=== PATIENT | female | born 1950 | race Caucasian/White ===

== ENCOUNTER 2020-03-20 07:14 | Outpatient (REF) | payer MEDICARE, SELFPAY ==
[2020-03-20 13:57] LABS: Glucose Urine UA NEG (NEG); Leukocyte Esterase Urine NEG (NEG); Nitrite Urine NEG (NEG); PH 5.5 (5.0-8.0); Specific Gravity - Urine >= 1.030 (1.005-1.025); Urine Blood NEG (NEG); Urine Ketones NEG (NEG); Urine Protein NEG (NEG-TRACE)
[2020-03-20 14:02] LABS: Appearance Urine CLOUDY; Color Urine YELLOW
[2020-03-20 14:08] LABS: Alanine Aminotransferase 30 U/L (0-31); Albumin Level 4.2 g/dL (3.5-5.0); Alkaline Phosphatase 99 U/L (39-117); Anion Gap 11 (12-20); Aspartate Amino Transferase 22 U/L (5-31); Bilirubin Total 0.4 mg/dL (0.0-1.0); Blood Urea Nitrogen 15 mg/dL (9-16); Calcium 8.5 mg/dL (8.4-10.2); Carbon Dioxide 29 mmol/L (22-29); Chloride 104 mmol/L (96-108); Cholesterol 152 mg/dL; Estimated Glomerular Filt Rate > 60; Glucose Fasting 104 mg/dL (60-99); HDL Cholesterol 30 mg/dL; LDL Cholesterol Calculated 104 mg/dl; Potassium 4.1 mmol/l (3.3-5.1); Sodium 140 mmol/L (135-145); Total Protein 6.7 g/dL (6.5-8.0); Triglycerides 90 mg/dL
[2020-03-20 14:34] LABS: Free T4 (Free Thyroxine) 1.23 ng/dL (0.71-1.85); Thyroid Stimulating Hormone 0.05 uIU/mL (0.32-4.0); Vitamin D 25-OH Total 31.7 ng/mL (>30)
== END 2020-03-20 07:15 | disposition home or self-care (01) ==
LOC: HO.HMGCLDS 07:14
PROVIDERS: PCP Internal Medicine; Visit Provider Internal Medicine
DX: I10 Essential (primary) hypertension (principal); E78.2 Mixed hyperlipidemia; E03.9 Hypothyroidism, unspecified
CPT/HCPCS: 80053; 80061; 81003; 82306; 84439; 84443

== ENCOUNTER 2020-04-17 08:44 | Outpatient (REF) | payer MEDICARE, SELFPAY ==
--- NOTE | 2020-04-17 08:50 | XR_ITS ---
EXAMINATION: XR HIP, RIGHT CLINICAL INFORMATION: Pain right hip. COMPARISON: None TECHNIQUE: Two views of the right hip. FINDINGS: Bones and soft tissues are normal. No fracture. Alignment is anatomic. Hip joint space is maintained. XR/XR hip RT min 2V IMPRESSION: Unremarkable right hip exam.
== END 2020-04-17 08:45 | disposition home or self-care (01) ==
LOC: HO.HMGCX 08:44
PROVIDERS: PCP Internal Medicine; Visit Provider Internal Medicine
DX: M25.551 Pain in right hip (principal)
CPT/HCPCS: 73502

== ENCOUNTER 2020-10-05 08:40 | Outpatient (REF) | payer MEDICARE, SELFPAY ==
--- NOTE | ~2020-10-05 | XR_ITS ---
EXAMINATION: XR CHEST CLINICAL INFORMATION: Cough. COMPARISON: None TECHNIQUE: 2 views of the chest were obtained. FINDINGS: No significant abnormality is noted involving the heart, lungs, mediastinum, bony thorax or soft tissues. XR/XR chest 2V IMPRESSION: Unremarkable chest examination.
== END 2020-10-05 08:41 | disposition home or self-care (01) ==
LOC: HO.HMGCX 08:40
PROVIDERS: PCP Internal Medicine; Visit Provider Internal Medicine
DX: R05 Cough (principal)
CPT/HCPCS: 71046

== ENCOUNTER 2020-12-22 16:09 | Outpatient (REF) | payer MEDICARE, SELFPAY ==
--- NOTE | ~2020-12-22 | XR_ITS ---
EXAMINATION: XR ANKLE, RIGHT XR ANKLE, LEFT CLINICAL INFORMATION: Pain in the left ankle and joints of left foot. Pain the right ankle and joints of the right foot. COMPARISON: None TECHNIQUE: AP, lateral, and mortise views of each ankle. FINDINGS: RIGHT ANKLE: No fracture. Alignment is anatomic. Ankle mortise is symmetric. Joint spaces are maintained. No ankle joint effusion. There is a small chronic 4 mm ossific fragment at the posteromedial aspect of the medial malleolus which could correspond to an old avulsion injury. No acute soft tissue abnormalities are identified. LEFT ANKLE: No fracture or malalignment. Ankle mortise is symmetric. Joint spaces are well-preserved. No effusion. No acute soft tissue abnormalities. XR/XR ankle RT min 3V IMPRESSION: No acute osseous abnormalities or significant arthritis at the ankles. Old chronic 4 mm ossific fragments near the right medial malleolus, potentially due to an old avulsion injury.
--- NOTE | ~2020-12-22 | XR_ITS ---
EXAMINATION: XR ANKLE, RIGHT XR ANKLE, LEFT CLINICAL INFORMATION: Pain in the left ankle and joints of left foot. Pain the right ankle and joints of the right foot. COMPARISON: None TECHNIQUE: AP, lateral, and mortise views of each ankle. FINDINGS: RIGHT ANKLE: No fracture. Alignment is anatomic. Ankle mortise is symmetric. Joint spaces are maintained. No ankle joint effusion. There is a small chronic 4 mm ossific fragment at the posteromedial aspect of the medial malleolus which could correspond to an old avulsion injury. No acute soft tissue abnormalities are identified. LEFT ANKLE: No fracture or malalignment. Ankle mortise is symmetric. Joint spaces are well-preserved. No effusion. No acute soft tissue abnormalities. XR/XR ankle LT min 3V IMPRESSION: No acute osseous abnormalities or significant arthritis at the ankles. Old chronic 4 mm ossific fragments near the right medial malleolus, potentially due to an old avulsion injury.
== END 2020-12-22 16:10 | disposition home or self-care (01) ==
LOC: HO.HMGCX 16:09
PROVIDERS: PCP Internal Medicine; Visit Provider Internal Medicine
DX: M25.571 Pain in right ankle and joints of right foot (principal); M25.572 Pain in left ankle and joints of left foot
CPT/HCPCS: 73610

== ENCOUNTER 2021-02-10 15:00 | Outpatient (RCR) | payer MEDICARE, SELFPAY ==
--- NOTE | 2021-01-13 16:03 | MHC.PT.EP ---
[facility] [place] Office [place] Office [place] Office [address] Leia Sanders [address] [phone] F: [phone] F: [phone] F: [phone] F: [phone] Physical Therapy Plan of Care Date of Evaluation: Date of Surgery: Diagnosis: pain in R ankle and joints of foot Assessment: 70 y/o F referred to PT with OA of R foot. She reports B ankle and forefoot pain for several year resulting in pain with walking (especially after prolonged rest), stairs, and exercise program. Examination shows decreased ankle AROM, decreased gastroc/soleus length, decreased strength of hip ER and ankle, and increased pain. Recommend PT 2x/week for 4 weeks to address impairments, implement HEP, and optimize functional mobility. Frequency and Duration: The patient will be seen 2x/week for 4 weeks Short Term Goals: 2 weeks 1. I with HEP 2. Improve ankle dorsiflexion to 5 degrees Medical Art Therapist Goals: 4 weeks: 1. I with HEP and self management of sx 2. Pt will be able to perform exercise classes with pain < 3/10 3. Improve Gastroc length by 5 degrees Treatment Plan: Modalities to reduce pain, spasms and effusion. Manual therapy to restore motion and function. Therapeutic exercise to improve strength and flexibility. Neuromuscular re-education for posture and balance. Therapeutic activities to return to functional activities of daily living. Electronically signed by: Ailyn Pineda PT Please sign and return to therapist. Thank you for your referral.
--- NOTE | 2021-02-16 11:32 | MHC.PT.DC ---
[facility] [place] Office [place] Office [place] Office [address] Mayra Sanders 140 [facility] [phone] F: [phone] F: [phone] F: [phone] F: [phone] Physical Therapy Discharge Report Diagnosis: pain in R ankle and joints of foot Date of Surgery: Date of Evaluation: 01/13/21 Date of Discharge: 02/16/21 Treatments to Date: 6 Cancellations to Date: 0 No Shows to Date: 0 Discharge Status: Patient Elected to Stop Discharge Summary: Pt called to self discharge stating she was sore after last session. States she will continue with I HEP at home, but would like to d/c from PT. Electronically signed by: Ailyn Pineda PT Please sign and return to therapist. Thank you for your referral.
== END 2021-02-16 11:32 | disposition home or self-care (01) ==
LOC: HO.PT 15:00
PROVIDERS: PCP Internal Medicine; Visit Provider Internal Medicine
DX: M25.571 Pain in right ankle and joints of right foot (principal)
CPT/HCPCS: 97110; 97112; 97140; 97150; 97161

== ENCOUNTER 2021-03-31 12:27 | Outpatient (REF) | payer MEDICARE, SELFPAY ==
[2021-03-31 14:03] LABS: Hematocrit 41.3 % (37.0-47.0); Hemoglobin 14.2 g/dl (12.0-16.0); Mean Corpuscular HGB Conc 34.4 g/dl (31.0-35.0); Mean Corpuscular Hemoglobin 31.8 pg (27.0-33.0); Mean Corpuscular Volume 92.4 fL (80.0-98.0); Mean Platelet Volume 10.2 fL (9.4-12.3); Platelet Count 276 X10*3/uL (160-400); Red Blood Count 4.47 X10*6/uL (4.20-5.50); Red Cell Distribution Width 11.7 % (11.0-16.0); White Blood Count 7.8 X10*3/uL (4.8-10.8)
[2021-03-31 14:44] LABS: Anion Gap 14 (12-20); Blood Urea Nitrogen 14 mg/dL (9-16); Calcium 10.1 mg/dL (8.4-10.2); Carbon Dioxide 26 mmol/L (22-29); Chloride 103 mmol/L (96-108); Estimated Glomerular Filt Rate > 60; Glucose Random 89 mg/dL (60-115); Sodium 139 mmol/L (135-145)
== END 2021-03-31 12:28 | disposition home or self-care (01) ==
LOC: HO.HMGCLDS 12:27
PROVIDERS: PCP Internal Medicine; Visit Provider Internal Medicine
DX: I10 Essential (primary) hypertension (principal)
CPT/HCPCS: 36415; 80048; 85027

== ENCOUNTER 2021-07-30 07:51 | Outpatient (REF) | payer MEDICARE, SELFPAY ==
[2021-07-30 11:31] LABS: Appearance Urine CLEAR; Color Urine YELLOW; Glucose Urine UA NEG (NEG); Leukocyte Esterase Urine NEG (NEG); Nitrite Urine NEG (NEG); Specific Gravity - Urine 1.015 (1.005-1.025); Urine Blood NEG (NEG); Urine Ketones NEG (NEG); Urine Protein NEG (NEG-TRACE)
[2021-07-30 11:51] LABS: Alanine Aminotransferase 31 U/L (0-31); Albumin Level 4.3 g/dL (3.5-5.0); Alkaline Phosphatase 80 U/L (39-117); Anion Gap 13 (12-20); Aspartate Amino Transferase 25 U/L (5-31); Bilirubin Total 0.6 mg/dL (0.0-1.0); Blood Urea Nitrogen 11 mg/dL (9-16); Calcium 9.8 mg/dL (8.4-10.2); Carbon Dioxide 27 mmol/L (22-29); Chloride 105 mmol/L (96-108); Cholesterol 167 mg/dL; Estimated Glomerular Filt Rate > 60; Glucose Fasting 112 mg/dL (60-99); HDL Cholesterol 37 mg/dL; LDL Cholesterol Calculated 107 mg/dl; Potassium 3.9 mmol/L (3.3-5.1); Sodium 141 mmol/L (135-145); Total Protein 6.8 g/dL (6.5-8.0); Triglycerides 116 mg/dL
[2021-07-30 11:59] LABS: RBC Urine 0 /HPF (0); Squamous Epithelial Cell Urine 1+ /LPF; WBC Urine 0-2 /HPF (0-4)
[2021-07-30 12:00] LABS: Bacteria Urine TRACE /LPF; Mucus Urine 1+ /LPF; Renal Epithelial Cells Urine TRACE /LPF
[2021-07-30 12:15] LABS: TSH reflex Free T4 0.17 uIU/mL (0.32-4.0); Vitamin D 25-OH Total 71.2 ng/mL (>30)
[2021-07-30 12:55] LABS: Free T4 (Free Thyroxine) 1.14 ng/dL (0.71-1.85)
== END 2021-07-30 07:52 | disposition home or self-care (01) ==
LOC: HO.HMGCLDS 07:51
PROVIDERS: Visit Provider Internal Medicine
DX: E03.9 Hypothyroidism, unspecified (principal); E78.5 Hyperlipidemia, unspecified; I10 Essential (primary) hypertension; K21.9 Gastro-esophageal reflux disease without esophagitis
CPT/HCPCS: 36415; 80053; 80061; 81001; 82306; 84439; 84443

== ENCOUNTER 2022-02-17 08:14 | Outpatient (REF) | payer MEDICARE, SELFPAY ==
[2022-02-17 11:18] LABS: Hematocrit 41.8 % (37.0-47.0); Hemoglobin 14.3 g/dl (12.0-16.0); Mean Corpuscular HGB Conc 34.2 g/dl (31.0-35.0); Mean Corpuscular Hemoglobin 31.5 pg (27.0-33.0); Mean Corpuscular Volume 92.1 fL (80.0-98.0); Mean Platelet Volume 10.5 fL (9.4-12.3); Platelet Count 244 X10*3/uL (160-400); Red Blood Count 4.54 X10*6/uL (4.20-5.50); White Blood Count 4.4 X10*3/uL (4.8-10.8)
[2022-02-17 11:22] LABS: Estimated Average Glucose 108 mg/dL; Hemoglobin A1c % 5.4 %
[2022-02-17 11:30] LABS: Alanine Aminotransferase 26 U/L (0-31); Albumin Level 4.3 g/dL (3.5-5.0); Alkaline Phosphatase 81 U/L (39-117); Anion Gap 13 (12-20); Aspartate Amino Transferase 28 U/L (5-31); Bilirubin Total 0.6 mg/dL (0.0-1.0); Blood Urea Nitrogen 15 mg/dL (9-16); Calcium 9.5 mg/dL (8.4-10.2); Carbon Dioxide 28 mmol/L (22-29); Chloride 102 mmol/L (96-108); Cholesterol 145 mg/dL; Estimated Glomerular Filt Rate > 60; Glucose Fasting 96 mg/dL (60-99); HDL Cholesterol 35 mg/dL; LDL Cholesterol Calculated 91 mg/dl; Sodium 139 mmol/L (135-145); Total Protein 6.8 g/dL (6.5-8.0); Triglycerides 99 mg/dL
[2022-02-17 11:55] LABS: TSH reflex Free T4 1.05 uIU/mL (0.32-4.0)
== END 2022-02-17 08:15 | disposition home or self-care (01) ==
LOC: HO.HMGCLDS 08:14
PROVIDERS: PCP Internal Medicine; Visit Provider Internal Medicine
DX: E03.9 Hypothyroidism, unspecified (principal); E78.5 Hyperlipidemia, unspecified; I10 Essential (primary) hypertension
CPT/HCPCS: 36415; 80053; 80061; 83036; 84443; 85027

== ENCOUNTER 2022-08-05 08:05 | Outpatient (REF) | payer MEDICARE, SELFPAY ==
[2022-08-05 11:38] LABS: Estimated Average Glucose 114 mg/dL; Hemoglobin A1c % 5.6 %
[2022-08-05 12:04] LABS: Alanine Aminotransferase 25 U/L (0-31); Albumin Level 4.2 g/dL (3.5-5.0); Alkaline Phosphatase 92 U/L (39-117); Anion Gap 12 (12-20); Aspartate Amino Transferase 24 U/L (5-31); Bilirubin Total 0.7 mg/dL (0.0-1.0); Blood Urea Nitrogen 12 mg/dL (9-16); Calcium 9.3 mg/dL (8.4-10.2); Carbon Dioxide 28 mmol/L (22-29); Chloride 107 mmol/L (96-108); Cholesterol 155 mg/dL; Estimated Glomerular Filt Rate > 60; Glucose Fasting 98 mg/dL (60-99); HDL Cholesterol 35 mg/dL; LDL Cholesterol Calculated 101 mg/dl; Potassium 4.5 mmol/L (3.3-5.1); Sodium 142 mmol/L (135-145); TSH reflex Free T4 0.25 uIU/mL (0.32-4.0); Total Protein 6.5 g/dL (6.5-8.0); Triglycerides 98 mg/dL; Vitamin D 25-OH Total 73.6 ng/mL (>30)
[2022-08-05 13:32] LABS: Free T4 (Free Thyroxine) 1.25 ng/dL (0.71-1.85)
== END 2022-08-05 08:06 | disposition home or self-care (01) ==
LOC: HO.HMGCLDS 08:05
PROVIDERS: PCP Internal Medicine; Visit Provider Internal Medicine
DX: E03.9 Hypothyroidism, unspecified (principal); I10 Essential (primary) hypertension; E78.5 Hyperlipidemia, unspecified; E55.9 Vitamin D deficiency, unspecified
CPT/HCPCS: 36415; 80053; 80061; 82306; 83036; 84439; 84443

== ENCOUNTER 2022-10-21 07:22 | Outpatient (REF) | payer MEDICARE, SELFPAY ==
[2022-10-21 12:18] LABS: Alanine Aminotransferase 23 U/L (0-31); Albumin Level 4.3 g/dL (3.5-5.0); Alkaline Phosphatase 80 U/L (39-117); Anion Gap 10 (12-20); Aspartate Amino Transferase 23 U/L (5-31); Bilirubin Total 0.9 mg/dL (0.0-1.0); Blood Urea Nitrogen 16 mg/dL (9-16); Calcium 9.9 mg/dL (8.4-10.2); Carbon Dioxide 31 mmol/L (22-29); Chloride 103 mmol/L (96-108); Estimated Glomerular Filt Rate > 60; Glucose Random 98 mg/dL (60-115); Potassium 4.1 mmol/L (3.3-5.1); Sodium 140 mmol/L (135-145); Total Protein 6.8 g/dL (6.5-8.0)
[2022-10-21 12:23] LABS: TSH reflex Free T4 0.18 uIU/mL (0.32-4.0)
[2022-10-21 13:07] LABS: Free T4 (Free Thyroxine) 1.17 ng/dL (0.71-1.85)
== END 2022-10-21 07:23 | disposition home or self-care (01) ==
LOC: HO.HMGCLDS 07:22
PROVIDERS: PCP Internal Medicine; Visit Provider Internal Medicine
DX: I10 Essential (primary) hypertension (principal); E03.9 Hypothyroidism, unspecified
CPT/HCPCS: 36415; 80053; 84439; 84443

== ENCOUNTER 2023-01-26 11:22 | Outpatient (AMB) | payer MEDICARE, SELFPAY ==
--- NOTE | 2023-01-26 11:34 | A.OFFPC_ITS ---
Vital Signs 01/26/23 11:36 Height 5 ft 2 in Weight 149 lb 6 oz BMI 27.3 BP 124/78 Blood Pressure Location Lt brachial Position Sitting Pulse 86 Pulse Source Pulse Oximeter Temp 98.3 F Temp Source Oral Pulse Oximetry (%) 98 Oxygen Delivery Method Room Air Intake Visit Reasons: cough x 4 days, COVID neg Intake Note: Patient is here with cough for 4 days, she took Covid test this morning and it came out negative. Allergies amlodipine [Lotrel] Allergy (Unknown, Verified 01/26/23 11:38) doesn't remember atorvastatin [Lipitor] Allergy (Unknown, Verified 01/26/23 11:38) does not remember benazepril [Lotrel] Allergy (Unknown, Verified 01/26/23 11:38) does not remember clindamycin Allergy (Unknown, Verified 01/26/23 11:38) doesnot remember ezetimibe [Zetia] Allergy (Unknown, Verified 01/26/23 11:38) does not remember ibandronate sodium [Boniva] Allergy (Unknown, Verified 01/26/23 11:38) pain in bones niacin [Niaspan Extended-Release] Allergy (Unknown, Verified 01/26/23 11:38) does not remember penicillin V Allergy (Unknown, Verified 01/26/23 11:38) sores in her mouth wheat Allergy (Unknown, Verified 01/26/23 11:38) Unknown metoprolol Adverse Reaction (Intermediate, Verified 01/26/23 11:38) Wavy vision lisinopril Adverse Reaction (Unknown, Verified 01/26/23 11:38) Cough Medication List - Last Reconciled 01/26/23 by Nicole Barroso MD calcium carbonate (Calcium) 600 mg PO DAILY glucosamine HCl 1,500 mg PO DAILY hydrochlorothiazide 12.5 mg PO DAILY irbesartan-hydrochlorothiazide 150-12.5 mg 1 tab PO DAILY levothyroxine 88 mcg PO DAILY montelukast 10 mg PO DAILY omeprazole magnesium (Prilosec OTC) 20 mg PO DAILY simvastatin 20 mg PO DAILY turmeric mg PO zinc sulfate PO Tobacco use date assessed: 01/26/23 Fall risk assessment: No Falls in past year Last assessed Fall Risk: 01/26/23 Dental Screening Dental Screen Date: 01/26/23 Did you have a dental visit in the last 12 months?: Yes Did you have a dental problem in the last 6 months where you did not have access to dental care?: No Was dental information given to patient?: Patient has dentist HPI cough x 4 days, COVID neg HPI Details Pt c/o dry cough, sore throat, worse at night for 4 days. Patient had 2- COVID testing. She denies fever chills pleurisy sinus congestion sputum production wheezing PND orthopnea. Patient reports chronic postnasal drip and has been using Flonase nasal spray with good relief. She has been taking antihistamine Claritin which has been somewhat helpful. [facility] Medical History Annual physical exam Cataract Bilateral ankle pain Ankle pain, right Breast cancer Cough Mammogram normal Normal Pap smear Hypothyroidism Hyperlipidemia Hip pain Dysphagia GERD (gastroesophageal reflux disease) Osteoporosis HTN (hypertension) Surgical History H/O colonoscopy No pertinent past surgical history Family History Father No problems noted. Mother No problems noted. Social History Housing: House Alcohol intake: current Alcohol intake frequency: holidays/special occasions only Patient Tobacco Use Status: Former Tobacco user Quit Date: in her 20s e-Cigarette/Vaping Use: Never Used Current occupational status: retired Cognitive needs: No Hearing needs: No Vision needs: Yes Questionnaire Thrive Questionnaire Date Thrive assessed: 08/12/22 SANTOSH-7 AMB Questionnaire SANTOSH-7 Date SANTOSH - 7 assessed: 08/12/22 Source: Developed by Drs. Trevor Mackay, Esperanza Frey, Brenton Rosales and colleagues, with an educational crys from [employer]. Review of Systems Const All systems reviewed & are unremarkable except as noted in HPI and below Reports no additional complaints Eyes Reports no additional complaints ENT Reports no additional complaints Card Reports no additional complaints Resp Reports no additional complaints GI Reports no additional complaints Reports no additional complaints Physical exam (Primary Care) Vital Signs: Last Vital Signs Temp 98.3 F 01/26/23 11:36 Pulse 86 01/26/23 11:36 BP 124/78 01/26/23 11:36 Pulse Ox 98 01/26/23 11:36 Oxygen Delivery Method Room Air 01/26/23 11:36 BMI result Body Mass Index 27.3 Tobacco/Smoking Status: Tobacco use Status Tobacco use date assessed 01/26/23 01/26/23 11:43 Patient Tobacco Use Status Former Tobacco user 01/26/23 11:43 e-Cigarette/Vaping Use Never Used 01/26/23 11:43 Thrive Assessment: Date of Thrive Assessment Date Thrive assessed 08/12/22 01/26/23 11:43 Const General: no acute distress HENMT Ears: hearing grossly normal bilaterally Face and sinus: Yes normal facial exam and No sinus tenderness Mouth: Normal oral and palatal mucosa present Throat: Yes postnasal drainage Eyes General: appearance normal, both eyes and all related structures Neck Neck: Yes supple Resp Effort & Inspection: normal respiratory effort Auscultation: clear to auscultation bilaterally Cardio Rhythm: regular rhythm Heart sounds: S1 normal heart sound present and S2 normal heart sound present Assessment and Plan Assessment & Plan (1) Cough: Code(s): R05 - Cough Plan: Patient was advised to continue antihistamine Flonase nasal spray and Tessalon Perles will be added. Medications: New benzonatate 100 mg PO TID 30 caps 0RF Coding Level of Care Code Est Pt Level 3 (97770) Diagnoses Cough R05
[2023-01-26 11:36] VITALS: BP 124/78; PULSE 86; TEMP 36.8; O2SAT 98; BMI 27.3
== END 2023-01-26 15:54 | disposition home or self-care (01) ==
PROVIDERS: PCP Internal Medicine; Visit Provider Internal Medicine
DX: R05.9 Cough, unspecified (principal)
CPT/HCPCS: 99213

== ENCOUNTER 2023-01-31 07:45 | Outpatient (REF) | payer MEDICARE, SELFPAY ==
--- NOTE | ~2023-01-31 | US_ITS ---
EXAMINATION: US ABDOMEN COMPLETE CLINICAL INFORMATION: Right upper quadrant pain. COMPARISON: None available. TECHNIQUE: Real-time imaging of the abdominal viscera. Limited visualization due to bowel gas. FINDINGS: PANCREAS: Limited visualization of pancreatic tail and head. Imaged portion of pancreatic body is unremarkable. ABDOMINAL AORTA: Nonaneurysmal. INFERIOR VENA CAVA: Visualized portions are normal. LIVER: Diffuse increase in echogenicity of the liver is characteristic of primary hepatocellular disease, possibly due to hepatic steatosis and further limits visualization. GALLBLADDER: No gallstones. No gallbladder wall thickening. COMMON BILE DUCT: Normal in caliber measuring 0.3 cm in diameter. RIGHT KIDNEY: No hydronephrosis. No renal calculi. Renal cortical thickness is normal. The kidney measures 11.3 cm in maximum dimension. LEFT KIDNEY: No hydronephrosis. No renal calculi. Limited visualization. Left renal 6.6 x 2.9 x 4.8 cm upper pole cyst as well as 1.8 cm lower pole cyst and 1.1 cm upper pole cyst with benign features. No follow up imaging is indicated. The kidney measures 12.1 cm in maximum dimension. SPLEEN: Normal. The spleen measures 8.8 cm in maximum dimension. FREE FLUID: None. US/US abdomen complete IMPRESSION: Diffuse increase in echogenicity of the liver is characteristic of primary hepatocellular disease, possibly due to hepatic steatosis and further limits visualization.
== END 2023-01-31 07:46 | disposition home or self-care (01) ==
LOC: HO.US 07:45
PROVIDERS: PCP Internal Medicine; Visit Provider Internal Medicine
DX: R10.11 Right upper quadrant pain (principal)
CPT/HCPCS: 76700

== ENCOUNTER 2023-04-12 11:12 | Outpatient (REF) | payer MEDICARE, SELFPAY ==
[2023-04-12 14:10] LABS: TSH reflex Free T4 0.66 uIU/mL (0.32-4.0)
[2023-04-13 04:18] LABS: Triiodothyronine T3 Free 3.4 pg/mL (2.3-4.2)
== END 2023-04-12 11:13 | disposition home or self-care (01) ==
LOC: HO.HMGCLDS 11:12
PROVIDERS: PCP Internal Medicine; Visit Provider Internal Medicine
DX: E03.9 Hypothyroidism, unspecified (principal)
CPT/HCPCS: 36415; 84443; 84481

== ENCOUNTER 2023-10-26 06:30 | Outpatient (REF) | payer MEDICARE, SELFPAY ==
[2023-10-26 10:53] LABS: Alanine Aminotransferase 23 U/L (0-31); Albumin Level 4.1 g/dL (3.5-5.0); Alkaline Phosphatase 70 U/L (39-117); Anion Gap 10 (12-20); Aspartate Amino Transferase 23 U/L (5-31); Bilirubin Total 0.7 mg/dL (0.0-1.0); Blood Urea Nitrogen 15 mg/dL (9-16); Calcium 9.5 mg/dL (8.4-10.2); Carbon Dioxide 28 mmol/L (22-29); Chloride 105 mmol/L (96-108); Cholesterol 139 mg/dL (<200); Estimated Glomerular Filt Rate > 60; Glucose Fasting 98 mg/dL (60-99); HDL Cholesterol 34 mg/dL (>40); LDL Cholesterol Calculated 89 mg/dL (<100); Potassium 3.9 mmol/L (3.3-5.1); Sodium 139 mmol/L (135-145); Total Protein 6.6 g/dL (6.5-8.0); Triglycerides 84 mg/dL (<150)
[2023-10-26 11:07] LABS: TSH reflex Free T4 0.82 uIU/mL (0.32-4.0)
== END 2023-10-26 06:31 | disposition home or self-care (01) ==
LOC: HO.HMGCLDS 06:30
PROVIDERS: PCP Internal Medicine; Visit Provider Internal Medicine
DX: I10 Essential (primary) hypertension (principal); E03.9 Hypothyroidism, unspecified
CPT/HCPCS: 36415; 80053; 80061; 84443

== ENCOUNTER 2023-11-13 12:53 | Outpatient (AMB) | payer MEDICARE, SELFPAY ==
[2023-11-13 13:08] VITALS: BP 120/78; PULSE 71; O2SAT 99; BMI 27.1
--- NOTE | 2023-11-13 13:08 | A.OFFPC_ITS ---
Vital Signs 11/13/23 13:08 Height 5 ft 2 in Weight 148 lb BMI 27.1 BP 120/78 Blood Pressure Location Lt brachial Position Sitting Pulse 71 Pulse Source Pulse Oximeter Pulse Oximetry (%) 99 Oxygen Delivery Method Room Air Intake Visit Reasons: Physical Exam Intake Note: Pt is here today for PE. Allergies amlodipine [Lotrel] Allergy (Unknown, Verified 11/13/23 13:09) doesn't remember atorvastatin [Lipitor] Allergy (Unknown, Verified 11/13/23 13:09) does not remember benazepril [Lotrel] Allergy (Unknown, Verified 11/13/23 13:09) does not remember clindamycin Allergy (Unknown, Verified 11/13/23 13:09) doesnot remember ezetimibe [Zetia] Allergy (Unknown, Verified 11/13/23 13:09) does not remember ibandronate sodium [Boniva] Allergy (Unknown, Verified 11/13/23 13:09) pain in bones niacin [Niaspan Extended-Release] Allergy (Unknown, Verified 11/13/23 13:09) does not remember penicillin V Allergy (Unknown, Verified 11/13/23 13:09) sores in her mouth wheat Allergy (Unknown, Verified 11/13/23 13:09) Unknown metoprolol Adverse Reaction (Intermediate, Verified 11/13/23 13:09) Wavy vision lisinopril Adverse Reaction (Unknown, Verified 11/13/23 13:09) Cough Medication List - Last Reconciled 11/13/23 by Nicole Barroso MD calcium carbonate (Calcium 600) 600 mg PO DAILY glucosamine HCl 1,500 mg PO DAILY hydrochlorothiazide 12.5 mg PO DAILY irbesartan-hydrochlorothiazide 150-12.5 mg 1 tab PO DAILY levothyroxine 88 mcg PO DAILY montelukast 10 mg PO DAILY omeprazole magnesium (Prilosec OTC) 20 mg PO DAILY simvastatin 20 mg PO DAILY turmeric mg PO zinc sulfate PO Tobacco use date assessed: 11/13/23 Fall risk assessment: No Falls in past year Last assessed Fall Risk: 11/13/23 Dental Screening Dental Screen Date: 11/13/23 Did you have a dental visit in the last 12 months?: Yes Did you have a dental problem in the last 6 months where you did not have access to dental care?: No Was dental information given to patient?: Patient has dentist HPI Physical Exam 2 HPI Details Pt presents for PE. [facility] Medical History (Updated 11/13/23 @ 13:56 by Nicole Barroso MD) Annual physical exam Cataract Bilateral ankle pain Ankle pain, right Breast cancer Cough Mammogram normal Normal Pap smear Hypothyroidism Hyperlipidemia Hip pain Dysphagia GERD (gastroesophageal reflux disease) Osteoporosis HTN (hypertension) Surgical History H/O colonoscopy No pertinent past surgical history Family History Father No problems noted. Mother No problems noted. Social History Housing: House Alcohol intake: current Alcohol intake frequency: holidays/special occasions only Patient Tobacco Use Status: Former Tobacco user e-Cigarette/Vaping Use: Never Used service: No Current occupational status: retired Cognitive needs: No Hearing needs: No Vision needs: Yes Questionnaire PHQ-9 Over the last 2 weeks, how often have you been bothered by any of the following problems? 1. Little interest or pleasure in doing things: not at all 2. Feeling down, depressed, or hopeless: not at all 3. Trouble falling or staying asleep, or sleeping too much: not at all 4. Feeling tired or having little energy: not at all 5. Poor appetite or overeating: not at all 6. Feeling bad about yourself - or that you are a failure or have let yourself or your family down: not at all 7. Trouble concentrating on things, such as reading the newspaper or watching television: not at all 8. Moving or speaking so slowly that other people could have noticed. Or the opposite - being so fidgety or restless that you have been moving around a lot more than usual: not at all 9. Thoughts that you would be better off or of hurting yourself in some way: not at all Total score: 0 Depression Screening Interpretation: Negative Depression Screening Done: Yes Source: Developed by Drs. Trevor Mackay, Esperanza Frey, Brenton Rosales and colleagues, with an educational crys from [employer]. Thrive Questionnaire Date Thrive assessed: 11/13/23 I am a: Patient What is your living situation today?: I have a steady place to live Within the past 12 months, did the food you bought not last and you didn't have the money to get more?: Never true Within the past 12 months, did you worry whether your food would run out before you got money to buy more?: Never true Do you have trouble paying for medicines?: No Do you have trouble getting transportation to medical appointments?: No Do you have trouble paying your heating and electricity bill?: No Do you have trouble taking care of your child, family member or friend?: No Do you have trouble with day-to-day activities such as bathing, preparing meals, shopping, managing finances, etc.?: No Are you currently unemployed and looking for a job?: No Are you interested in more education?: No Please select the resources that you would like help with: None THRIVE Score: 0 AUDIT C Alcohol Use Questionnaire (AUDIT-C) 1. How often do you have a drink containing alcohol?: Never 3. How often do you have six or more drinks on one occasion?: Never Total Score: 0 SANTOSH-7 AMB Questionnaire SANTOSH-7 Date SANTOSH - 7 assessed: 11/13/23 Feeling nervous, anxious, or on edge: 0 = Not at all Not being able to stop or control worryin = Not at all Worrying too much about different things: 0 = Not at all Trouble relaxin = Not at all Being so restless that it is hard to sit still: 0 = Not at all Becoming easily annoyed or irritable: 0 = Not at all Feeling afraid as if something awful might happen: 0 = Not at all Total SANTOSH-7 score (0-4 normal; 5-9 mild; 10-14 moderate; 15-21 severe): 0 Source: Developed by Drs. Trevor Mackay, Esperanza Frey, Brenton Rosales and colleagues, with an educational crys from [employer]. Review of Systems Const All systems reviewed & are unremarkable except as noted in HPI and below Eyes Reports no additional complaints ENT Reports no additional complaints Card Reports no additional complaints Resp Reports no additional complaints GI Reports no additional complaints Reports no additional complaints Musc Reports no additional complaints Physical exam (Primary Care) Vital Signs: Last Vital Signs Pulse 71 11/13/23 13:08 BP 120/78 11/13/23 13:08 Pulse Ox 99 11/13/23 13:08 Oxygen Delivery Method Room Air 11/13/23 13:08 BMI result Body Mass Index 27.1 Tobacco/Smoking Status: Tobacco use Status Tobacco use date assessed 11/13/23 11/13/23 13:10 Patient Tobacco Use Status Former Tobacco user 11/13/23 13:10 e-Cigarette/Vaping Use Never Used 11/13/23 13:10 PHQ-9: PHQ-9 Score PHQ-9: Total score 0 11/13/23 13:32 Depression Screening Interpretation: Negative Thrive Assessment: Date of Thrive Assessment Date Thrive assessed 11/13/23 11/13/23 13:32 Const General: no acute distress HENMT Head: Yes normal to inspection Face and sinus: Yes normal facial exam Mouth: Normal oral and palatal mucosa present Eyes General: appearance normal, both eyes and all related structures Neck Neck: Yes no lymphadenopathy and Yes supple Resp Effort & Inspection: normal respiratory effort Auscultation: clear to auscultation bilaterally Cardio Rhythm: regular rhythm Heart sounds: S1 normal heart sound present and S2 normal heart sound present GI Inspection: Yes normal to inspection Palpation (GI): Soft to palpation Percussion: Yes normal to percussion Auscultation: normal bowel sounds Assessment and Plan Assessment & Plan (1) Annual physical exam: Code(s): Z00.00 - Encounter for general adult medical examination without abnormal findings Plan: Well-balanced diet regular physical activity discussed with the patient. (2) Breast cancer: Comment: R lumpectomy 08/2020, RTx 09/2020, f/u [facility] Code(s): C50.919 - Malignant neoplasm of unspecified site of unspecified female breast Plan: Follows up with [facility] Oncology (3) HTN (hypertension): Code(s): I10 - Essential (primary) hypertension Plan: Continue current medications (4) Hypothyroidism: Code(s): E03.9 - Hypothyroidism, unspecified Plan: Continue levothyroxine (5) Hyperlipidemia: Code(s): E78.5 - Hyperlipidemia, unspecified Plan: Continue statin Orders: Orders Comprehensive [place]. Panel Fast 1 Year E03.9 - Hypothyroidism, unspecified, E55.9 - Vitamin D deficiency, unspecified, E78.5 - Hyperlipidemia, unspecified, I10 - Essential (primary) hypertension, Z00.00 - Encounter for general adult medical examination without abnormal findings Lipid Panel 1 Year E03.9 - Hypothyroidism, unspecified, E55.9 - Vitamin D deficiency, unspecified, E78.5 - Hyperlipidemia, unspecified, I10 - Essential (primary) hypertension, Z00.00 - Encounter for general adult medical examination without abnormal findings TSH reflex Free T4 1 Year E03.9 - Hypothyroidism, unspecified, E55.9 - Vitamin D deficiency, unspecified, E78.5 - Hyperlipidemia, unspecified, I10 - Essential (primary) hypertension, Z00.00 - Encounter for general adult medical examination without abnormal findings UA w Microscopic 1 Year E03.9 - Hypothyroidism, unspecified, E55.9 - Vitamin D deficiency, unspecified, E78.5 - Hyperlipidemia, unspecified, I10 - Essential (primary) hypertension, Z00.00 - Encounter for general adult medical examination without abnormal findings Complete Blood Count Auto Diff 1 Year E03.9 - Hypothyroidism, unspecified, E55.9 - Vitamin D deficiency, unspecified, E78.5 - Hyperlipidemia, unspecified, I10 - Essential (primary) hypertension, Z00.00 - Encounter for general adult medical examination without abnormal findings Vitamin D 25-OH Total 1 Year E03.9 - Hypothyroidism, unspecified, E55.9 - Vitamin D deficiency, unspecified, E78.5 - Hyperlipidemia, unspecified, I10 - Essential (primary) hypertension, Z00.00 - Encounter for general adult medical examination without abnormal findings Medications: Refilled montelukast 10 mg PO DAILY 30 tabs 2RF simvastatin 20 mg PO DAILY 90 tabs 3RF irbesartan-hydrochlorothiazide 150-12.5 mg 1 tab PO DAILY 90 tabs 3RF levothyroxine 88 mcg PO DAILY 90 tabs 3RF Coding Level of Care Code Est Pt Prev Care >65y(36271) Diagnoses Annual physical exam Z00.00 Breast cancer C50.919 HTN (hypertension) I10 Hypothyroidism E03.9 Hyperlipidemia E78.5
== END 2023-11-13 14:10 | disposition home or self-care (01) ==
PROVIDERS: PCP Internal Medicine; Visit Provider Internal Medicine
DX: Z00.00 Encounter for general adult medical examination without abnormal findings (principal); C50.919 Malignant neoplasm of unspecified site of unspecified female breast; I10 Essential (primary) hypertension; E03.9 Hypothyroidism, unspecified; E78.5 Hyperlipidemia, unspecified
CPT/HCPCS: 99397

== ENCOUNTER 2024-12-03 07:20 | Outpatient (REF) | payer MEDICARE, SELFPAY ==
--- OUTSIDE RECORDS SUMMARY | 2024-12-03 07:25 | XMS_ITS | Encounter Summary ---
Author Organization [facility] Address [address] [place] [id number] Phone Care Team Providers Care Core Blower Name Role Phone Nicole Barroso MD Primary Care Provider [phone] Becka Crump MD Unavailable Encounter Details Date Type Department Care Team (Late st Contact Info) Description 09/01/2020 Ancillary Orders [facility],Outside Imaging [address], [place] [id number] System, Provider Not In, [facility] [address] [address] Social History Tobacco Use Types Packs/Day Years Used Date Smoking Tobacco: Never Assessed Comments Unknown Sex and Gender Information Value Date Recorded Sex Assigned at Female 11/30/2020 10:42 AM EDT Legal Sex Female 6:42 PM EST Gender Identity Female 11/30/2020 10:42 AM EDT Sexual Orientation Straight 11/30/2020 10 :44 AM EDT documented as of this encounter Plan of Treatment Not on file documented as of this encounter Results * Mammogram Outside (No Interpretation) (10/02/2017 12:00 AM EDT) Narrative SYSTEMGENERATED, DOCUMENTATION - 09/01/2020 1:18 PM EDT This study is for PACS storage only and not for interpretation. us Provider Not In System PhD IMG OUTSIDE IMAGING W /OUT INTERPRETATION Final Result documented in this encounter Visit Diagnoses Not on filedocumented in this encounter Care Teams Core Blower Relationship Specialty Start Date End Date Nicole Barroso MD [facility] [address] [place] [id number] PCP - General Internal Medicine 08/31/20 Becka Crump MD [address] [place] [address] [email or web address] Primary Oncologist Hematology and Oncology 08/31/20 documented as of this encounter Additional Source Comments The information contained in this document represents components of the legal health record. It is not the complete legal health record.[facility]
[2024-12-03 10:19] LABS: Appearance Urine Turbid; Glucose Urine UA Negative (Negative); PH 5.5 (5.0-9.0); Specific Gravity - Urine >= 1.030 (1.005-1.025)
[2024-12-03 10:25] LABS: MANUAL DIFF FLAG NO
[2024-12-03 10:29] LABS: Hematocrit 42.6 % (37.0-47.0); Hemoglobin 14.2 g/dl (12.0-16.0); Imm Gran Abs Auto 0.01 X10*3/uL (0.00-0.03); Imm Gran Pct Auto 0.2 % (0.0-0.4); Lymphocytes Absolute Auto 1.6 X10*3/uL (1.2-4.9); Mean Corpuscular HGB Conc 33.3 g/dl (31.0-35.0); Mean Corpuscular Hemoglobin 31.1 pg (27.0-33.0); Mean Corpuscular Volume 93.4 fL (80.0-98.0); NRBC Abs Auto 0.000 X10*3/uL (0.0-0.012); NRBC Pct Auto 0.0 /100WBC (0.0-0.2); Platelet Count 253 X10*3/uL (160-400); Red Blood Count 4.56 X10*6/uL (4.20-5.50); White Blood Count 4.9 X10*3/uL (4.8-10.8)
[2024-12-03 10:54] LABS: Alanine Aminotransferase 29 U/L (0-31); Albumin Level 4.2 g/dL (3.5-5.0); Alkaline Phosphatase 72 U/L (39-117); Anion Gap 12 (12-20); Aspartate Amino Transferase 31 U/L (5-31); Blood Urea Nitrogen 14 mg/dL (9-16); Calcium 9.3 mg/dL (8.4-10.2); Carbon Dioxide 27 mmol/L (22-29); Chloride 106 mmol/L (96-108); Cholesterol 142 mg/dL (<200); Estimated Glomerular Filt Rate > 60; HDL Cholesterol 34 mg/dL (>40); Potassium 4.0 mmol/L (3.3-5.1); Sodium 141 mmol/L (135-145); Total Protein 6.6 g/dL (6.5-8.0); Triglycerides 99 mg/dL (<150)
== END 2024-12-03 07:21 | disposition home or self-care (01) ==
LOC: HO.HMGCLDS 07:20
PROVIDERS: PCP Internal Medicine; Visit Provider Internal Medicine
DX: Z00.00 Encounter for general adult medical examination without abnormal findings (principal); I10 Essential (primary) hypertension; E03.9 Hypothyroidism, unspecified; E78.5 Hyperlipidemia, unspecified; E55.9 Vitamin D deficiency, unspecified
CPT/HCPCS: 36415; 80053; 80061; 81001; 82306; 84443; 85025

== ENCOUNTER 2024-12-10 07:59 | Outpatient (REF) | payer MEDICARE, SELFPAY ==
--- NOTE | ~2024-12-10 | XR_ITS ---
EXAMINATION: XR CHEST 2 VIEWS HISTORY: R05 - Cough COMPARISON: Comparison is made with the prior examination dated 10/05/2020. FINDINGS: PA and lateral views of the chest are submitted. The lungs are expanded and clear. There is no pleural effusion, pneumothorax, or pulmonary vascular congestion. The heart is normal in size. The bones are intact. There are surgical clips in the right breast. XR/XR chest 2V IMPRESSION: No acute cardiopulmonary abnormality. Electronically signed by: Trevor Pfeiffer MD 12/10/2024 09:15 AM EDT
== END 2024-12-10 08:00 | disposition home or self-care (01) ==
LOC: HO.HMGCX 07:59
PROVIDERS: PCP Internal Medicine; Visit Provider Internal Medicine
DX: Z00.00 Encounter for general adult medical examination without abnormal findings (principal); Z23 Encounter for immunization; R05.9 Cough, unspecified; E03.9 Hypothyroidism, unspecified; R13.10 Dysphagia, unspecified; E78.5 Hyperlipidemia, unspecified; Z85.3 Personal history of malignant neoplasm of breast
CPT/HCPCS: 71046; 90471; 90677; 96127; 99397

== ENCOUNTER 2024-12-10 07:59 | Outpatient (AMB) | payer MEDICARE, SELFPAY ==
--- OUTSIDE RECORDS SUMMARY | 2024-12-10 08:01 | XMS_ITS | Encounter Summary ---
Author Organization [facility] Address [address] [place] [phone] Phone Care Team Providers Care Correctional Captain Name Role Phone Nicole Barroso MD Primary Care Provider [phone] Becka Crump MD Unavailable Encounter Details Date Type Department Care Team (Late st Contact Info) Description 09/01/2020 Ancillary Orders [facility],Outside Imaging [address], [place] [id number] System, Provider Not In, [facility] [address] [address] Social History Tobacco Use Types Packs/Day Years [...] on filedocumented in this encounter Care Teams Correctional Captain Relationship Specialty Start Date End Date Nicole Barroso MD [facility] [address] [place] [id number] PCP - General Internal Medicine 08/31/20 Becka Crump MD [address] [place] [address] [email or web address] Primary Oncologist Hematology and Oncology 08/31/20 documented as of this encounter Additional Source Comments The information contained in this document represents components of the legal health record. It is not the complete legal health record.[facility]
--- OUTSIDE RECORDS SUMMARY | 2024-12-10 08:01 | XMS_ITS | Data Portability ---
Author Organization [place] - [facility],, MADELAINE MAYORGA MD Address [address] [address] Care Team Providers Care Data Migration Consultant Name Role Phone SYL ALFRED Primary Care Provider [phone] Assessment No assessment recorded. Plan of Treatment Reminders Order Date Submit Date Provider Last Modified By Organization Details Last Modified Time Details Appointments ANNUAL EXAM 2025 08:40A M Madelaine Mayorga MD Not available Not available Not available Lab cytology report, thin prep, smear or scraping , cervical or vaginal 2024 025 [facility] (Centralized Electronic Ordering - All Locations), Patient Can Go To The Location Of Their Choice, [id number] 07/19/2024 12:16:25 pap test, thinprep , cervical 2023 [facility]24 [facility]), Patient Can Go To The Location Of Their Choice, [id number] 07/24/2023 07:59:21 pap test, thinprep , cervical 2022 023 [facility] (Centralized Electronic Ordering - All Locations), Patient Can Go To The Location Of Their Choice, [address] 08/01/2022 07:52:31 pap test, thinprep , cervical 2020 021 [facility], Cytopathology Service, [address] [place], [address], 07/10/2020 07:39:42 pap test, thinprep , cervical 2017 018 [facility], Cytopathology Service, [address] [place], [address], 10/04/2017 16:47:21 Referral None recorded . Procedures None recorded . Surgeries None recorded . Imaging MAMMO, screenin g, digital, bilatera l - Breast Aspirati on and/or Biopsy if needed 2024 025 [facility] Orders, [address], [place], [address], 09/20/2024 17:01:41 bone density 2024 025 [facility] Orders, [address], [address], [place], [address], 07/17/2024 11:53:19 MAMMO, screenin g, digital, bilatera l - Breast Aspirati on and/or Biopsy if needed 2023 024 [facility] Orders, [address], [place], [address], 09/15/2023 14:48:28 bone density 2023 024 [facility] Orders, [address], [place], [address], 07/15/2024 07:13:56 MAMMO, screenin g, digital, bilatera l 2022 023 [facility] Orders, [address], [place], [address], 09/05/2022 11:33:30 bone density 2022 023 [facility] Orders, [address], [address], [place], [address], 07/08/2024 07:12:07 MAMMO, screenin g, digital, bilatera l 2020 021 [facility] Orders, [address], [address], [place], [address], 08/04/2020 07:30:38 bone density 2020 021 [facility] Orders, [address], [address], [place], [address], 06/26/2023 07:44:37 MAMMO, screenin g, digital, bilatera l 2017 018 [facility] Orders, [address], [place], [address], 10/29/2018 07:58:54 Medication Orders None recorded . Patient TargetsNo targets recorded. Patient Instructions Encounter Date Encounter Id Patient Instructions Last Modified By Organization Details Last Modified Time 10/03/2017 [id number] self breast exam education Not available 10/03/2017 08:39:16 She is here for annual exam, is doing well. She uses her topical nystatin-triamcinol one on occasion, for her lichen sclerosis, She only has two or three times the symptoms occur a year. SHE KELSEY LCALL WHEN SHE NEEDS A REFILL. Her had his kidney removed a month ago due to kidney cancer. She appears to be doing well. She is advised to get 1500 mg of calcium daily into her diet and supplements combined. We discussed the benefits of adequate vitamin D supplementation to at least 400 units daily, daily aerobic exercise of 30 minutes, and stress reduction. Monthly self breast exam was taught, and stressed, and is advised to call if she discovers any new mass in the breast. Seat belt use for herself and passengers advised. The significant health benefits of becoming and remainig fit, with an optimal BMI, were also discussed. We discussed the potential reduction in chronic discomfort, the diminished risks of hypertension, diabetes, and heart disease with the proper weight management, and improved mobility as she ages. Strategies to reach and maintain her target weight wer discussed in detail, all questions answered. Not available 10/03/2017 08:41:11 07/03/2020 [id number] atrophic vaginit is: care instructions Not available 07/03/2020 08:25:33 learning about healthy weight Not available 07/03/2020 08:25:33 She is here for annual exam, is doing well. Her survived his renal cancer. She is fully vaccinateed. She notes she had pruritus after the use of surgi jel last visit, declines lubricant. Last mammo she states was 04/02, she has appointment for next month. Note from 09/2017: She is here for annual exam, is doing well. She uses her topical nystatin-triamcinol one on occasion, for her lichen sclerosis, She only has two or three times the symptoms occur a year. SHE KELSEY LCALL WHEN SHE NEEDS A REFILL. Her had his kidney removed a month ago due to kidney cancer. Surgijel not used. She appears to be doing well. She is advised to get 1500 mg of calcium daily into her diet and supplements combined. We discussed the benefits of adequate vitamin D supplementation to at least 400 units daily, daily aerobic exercise of 30 minutes, and stress reduction. Monthly self breast exam was taught, and stressed, and is advised to call if she discovers any new mass in the breast. Not available 07/03/2020 08:26:33 07/15/2022 [id number] advance benefici kaylee notice information Not available 07/15/2022 13:33:48 advance care planning for heart failure: care instructions Not available 07/15/2022 13:33:48 atrophic vaginit is: care instructions Not available 07/15/2022 13:33:48 learning about healthy weight Not available 07/15/2022 13:33:48 She is here for annual exam, had breast cancer treatment, lumpectomy and RTx, doing well now. Note from 2020: She is here for annual exam, is doing well. Her survived his renal cancer. She is fully vaccinateed. She notes she had pruritus after the use of surgi jel last visit, declines lubricant. Last mammo she states was 04/02, she has appointment for next month. ___ She appears to be doing well. Monthly self breast exam was taught, and stressed, and is advised to call if she discovers any new mass in the breast. Not available 07/15/2022 13:34:13 07/17/2023 [id number] atrophic vaginit is: care instructions Not available 07/17/2023 09:06:06 learning about healthy weight Not available 07/17/2023 09:06:06 She is here for annual, doing well. Past history breast cancer. DO NOT USE LUBRICANT SHE IS SENSITIVE. Note from 2022: She is here for annual exam, had breast cancer treatment, lumpectomy and RTx, doing well now. _ She appears to be doing well. Monthly self breast exam was taught, and stressed, and is advised to call if she discovers any new mass in the breast. Not available 07/17/2023 10:07:17 07/17/2024 [id number] advance benefici kaylee notice information Not available 07/17/2024 09:07:31 advance care planning for heart failure: care instructions Not available 07/17/2024 09:07:31 atrophic vaginit is: care instructions Not available 07/17/2024 09:07:31 learning about healthy weight Not available 07/17/2024 09:07:31 She is here for annual, doing well. Past history breast cancer. DO NOT USE LUBRICANT SHE IS SENSITIVE. She appears to be doing well. Monthly self breast exam was taught, and stressed, and is advised to call if she discovers any new mass in the breast. Not available 07/17/2024 09:07:38 Reason for Referral None Reported. Results Created Date Observation Date Name Description Value Unit Range Abnormal Flag Note LastModifiedBy Organization Detail LastModifiedTime 10/04/19 18 10/03/2017 pap, LB [id number] ThinP rep Pap, Image d: NEGAT KEANU FOR SQUAM OUS INTRA EPITH ELIAL LESIO N AND MALIG DEBORAH . Atrop hy. Ely hernandez Danish ramon CT( CP) (Case elect cornelius hernández desire d 10 04 2017) ADEQU ACY: Satis facto ry. SOURC E: ThinP rep Pap HPV IF ASCUS , Cervi deuce, Image d: CLINI DEUCE INFOR MATIO N: HPV If Diagn osis of ASCUS . Menop ause, lps = unsat is speci men. z12.4 Not Available [facility], Cytopathology Service [address] [place], [address], 10/04/2017 16:47:21 07/03/19 21 07/03/2020 pap, LB [id number] ThinP rep Pap, Image d: NEGAT KEANU FOR SQUAM OUS INTRA EPITH ELIAL LESIO N AND MALIG DEBORAH . Atrop hy. Cass Ludwig , CT( CP) (Case elect cornelius hernández desire d 07 07 2020) ADEQU ACY: Satis facto ry Endoc ervic al/tr ansfo rmati on zone compo nent prese nt. SOURC E: ThinP rep Pap HPV IF Ascus : Refle x 16 and 18, Cervi deuce, Image d CLINI DEUCE INFOR MATIO N: HPV If Diagn osis of ASCUS . LPS NEG. Z12.4 Not Available [facility], Cytopathology Service [address] [place], [address], 07/07/2020 11:17:25 07/16/19 23 07/15/2022 [facility] CYTOL OGY results Stanford aguilar Name: SYEDA FOWLERhector aguilar : 1950 (Age: 71) Lab Acces jas #: [id number] Colle ction Date: 023 Acces jas Date: 023 Sign Out Date: 2022 Tissu e Sourc e: 1: 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 Satis facto ry for evalu ation . Endoc ervic al/tr ansfo rmati on zone prese nt. Clini deuce Histo ry: Date of Last Menst rual Perio d: not avail able Menst rual Histo ry: not avail able Contr acept keanu Histo ry: not avail able Ancil maggie Testi ng: HPV (ASCU S) Case image d by the ThinP rep Imagi ng Syste m with sejal de la torre or carley miller Perfo rmed at [facility] ate Refer ence Labor atory depar tment of Cytol ogy, [address] [place] Clini deuce Histo ry (othe r): Z91.8 9, routi ne scree n, LPS 07/03 negat keanu Phone #: [phone], On-Ca ll Patho logis t: [id number] Not Available [facility] (Centralized Electronic Ordering - All Locations) Patient Can Go To The Location Of Their Choice, [address] 07/27/2022 13:40:21 07/17/19 24 07/17/2023 [facility] CYTOL OGY results Stanford nt Name: SYEDA FOWLER : 1950 (Age: 72) Lab Acces jas #: [id number] Colle ction Date: Acces jas Date: 024 Sign Out Date: 024 Tissu e Sourc e: 1: 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 Satis facto ry for evalu ation . Endoc ervic al/tr ansfo rmati on zone prese nt. Clini deuce Histo ry: Date of Last Menst rual Perio d: not avail able Menst rual Histo ry: Post- menop ausal Contr acept keanu Histo ry: not avail able Ancil maggie Testi ng: HPV (ASCU S) Case image d by the ThinP rep Imagi rd Mcbride m with sejal de la torre or carley Flores rmed at [facility] ate Refer ence Labor atory depar tment of Cytol ogy, [address] [place] Clini deuce Histo ry (othe r): z01.4 19, lps 07-15 neg, routi ne scree n Phone #: [phone], On-Ca ll Patho logis t: [id number] Not Available [facility] (Centralized Electronic Ordering - All Locations) Patient Can Go To The Location Of Their Choice, [address] 07/20/2023 14:24:22 07/18/19 25 07/19/2024 IGP, RFX APTIM A HPV ASCU diagnosis: Brian COLUNGA FOR INTRA EPITH ELIAL LESIO N OR FRANK CABRERA . Not Available [facility] ([facility]) [address] [place], [address], 07/19/2024 12:16:25 07/18/19 25 07/19/2024 IGP, RFX APTIM A HPV ASCU specimen adequacy: Brian t Satis facto ry for evalu ation . Endoc ervic al and/o r squam ous metap lasti c cells (endo cervi deuce compo nent) are prese nt. Not Available [facility] ([facility]) [address] [place], [address], 07/19/2024 12:16:25 07/18/19 25 07/19/2024 IGP, RFX APTIM A HPV ASCU clinician provided ICD10: Brian jay Z91.8 9 Not Available [facility] ([facility]) [address] [place], [address], 07/19/2024 12:16:25 07/18/19 25 07/19/2024 IGP, RFX APTIM A HPV ASCU performed by: Brian Leyva, Cytot echno logis t (ASCP ) Not Available [facility] ([facility]) [address] [place], [address], 07/19/2024 12:16:25 07/18/19 25 07/19/2024 IGP, RFX APTIM A HPV ASCU . . Not Available [facility] ([facility]) [address] [place], [address], 07/19/2024 12:16:25 07/18/19 25 07/19/2024 IGP, RFX APTIM A HPV ASCU note: Commen t The Pap smear is a scree mukund test desig chante to aid in the detec tion of lina ligna nt and malig nant condi tions of the uteri ne cervi x. It is not a diagn ostic proce dure and shoul d not be used as the sole means of detec ting cervi deuce cance r. Both false -posi tive and false -nega tive repor ts do occur . Not Available [facility] ([facility]) [address] [facility], [place], [address], 07/19/2024 12:16:25 07/18/19 25 07/19/2024 IGP, RFX APTIM A HPV ASCU test methodology: Commen t This liqui d based ThinP rep(R ) pap test was scree chante with the use of an image guide d syste m. Not Available [facility] ([facility]) [address] [place], [address], 07/19/2024 12:16:25 07/18/19 25 07/19/2024 IGP, RFX APTIM A HPV ASCU . Commen t The HPV DNA refle x crite lamonte were not met with this speci men resul t there fore, no HPV testi ng was perfo rmed. Not Available [facility] ([facility]) [address] [place], [address], 07/19/2024 12:16:25 09/26/19 18 09/25/2017 MAMMO , scree mukund, digit al, bilat eral No observ ation record ed. [email or web address] [facility] [address], [place], [address], 09/26/2017 08:05:42 10/03/19 18 10/02/2017 US, alisa t No observ ation record ed. Not Available 09/13 08:03:21 10/03/19 18 10/02/2017 MAMMO , diagn ostic , digit al, unila teral No observ ation record ed. Not Available 09/13 08:03:21 03/15/20 19 03/15/2019 MAMMO , scree mukund, digit al, bilat eral No observ ation record ed. [facility] (Outpt Imaging) [address], [place], [address], 03/17/2019 15:16:25 08/05/19 21 08/03/2020 MAMMO , scree mukund, digit al, bilat eral No observ ation record ed. [facility] Orders [address], [place], [address], 08/04/2020 08:34:39 08/08/19 21 08/07/2020 MAMMO , diagn ostic , digit al, unila teral No observ ation record ed. [email or web address] [facility] Orders [address], [place], [address], 08/07/2020 11:07:21 08/18/19 21 08/17/2020 needl e core biops y, breas t, ultra sound anil nce (PROC ) No observ ation record ed. [facility] Orders [address], [place], [address], 08/17/2020 10:33:23 08/21/19 21 08/17/2020 needl e core biops y, breas t, ultra sound anil nce (PROC ) No observ ation record ed. [facility] Orders 100 [facility] [address], [place], [address], 08/21/2020 11:11:41 09/04/19 22 09/03/2021 MAMMO , scree mukund, digit al, bilat eral No observ ation record ed. [address] [facility] [address] [facility] [place], [address], 09/03/2021 14:49:35 09/06/19 23 09/05/2022 MAMMO , scree mukund, digit al, bilat eral No observ ation record ed. [address] [facility] [address], [place], [address], 09/05/2022 12:47:05 09/15/19 24 09/15/2023 MAMMO , scree mukund, digit al, bilat eral No observ ation record ed. [address] [facility] [address], [place], [address], 09/18/2023 07:46:18 09/21/19 25 09/20/2024 MAMMO , scree mukund, digit al, bilat eral No observ ation record ed. [facility] [address] [place], [address], 10/22/2024 07:24:51 10/19/19 25 10/18/2024 , alisa jay No observ ation record ed. [address] [facility] [address] [place], [address], 10/19/2024 12:14:56 Result Notes None recorded. Problems Name Problem SNOMED Code Status Onset Date Resolution Date Notes Provider Name and Address Organization Details Recorded Time Benign essential hypertension 7665617 Active Not Available [facility] 3 03:01:03 Lichen sclerosus et atrophicus Active Not Available [facility] 3 03:01:03 Acquired hypothyroidis m 891794844 Active Not Available [facility] 3 03:01:03 Pure hypercholeste rolemia 997649871 Active Not Available [facility] 3 03:01:03 Mammography abnormal 845101899 Active Madelaine Mayorga MD [address], [place], [address] , [place] - [facility], 5 11:12:51 Personal history of primary malignant neoplasm of breast 133884098 Active 2022 Right [place] Lebron in [facility], 3 08:45:24 Problem Notes None recorded. Procedures Surgical History Date Name Laterality Status Provider Name and Address Organization Details Recorded Time 4 Most Recent Mammogram completed Elizabeth Simeon in [facility], 07/08/2024 10:57:22 1 lumpectomy of right breast completed Shauna Simeon in [facility], 07/15/2022 08:42:55 Imaging Results None recorded. Procedure Notes None recorded. Medical Equipment None Reported. Allergies Allergen ID Allergen Name Allergen Category Reaction Reaction Severity Criticality Documentation Date Start Date Code Code System Note Provider Name and Address Organization Details Recorded Time 15557 clindamyc in Not available other Not available Not available 09/09/2014 2582 RxNorm sores in mouth SONIDO Penny in [facility], 5 08:09:57 1621 penicilli n G Not available other mild Not available 10/28/2011 7980 RxNorm Syeda Conde [place] dar[place] in [facility], 2 08:20:25 lubricant Not available itching moderate Not available 10/03/2017 95012 UNK DO NOT USE VAGIN AL HERB Mayorga MD [address], [place], [address], [place] - [facility], 8 08:40:22 Medications Name Sig Start Date Stop Date Status Note LastModified by Organization Details LastModified Time clotrimazol e 10 mg haim active Not Available Not Available Not Available desoximetas one 0.25 % topical cream 10/03 completed Not Available Not Available Not Available ketoconazol e 2 % shampoo active Not Available Not Available Not Available clindamycin HCl 300 mg capsule TAKE 1 CAPSULE BY MOUTH 3 TIMES A DAY 07/16 completed Not Available Not Available Not Available irbesartan 150 mg-hydrochl orothiazide 12.5 mg tablet TAKE 1 TABLET DAILY active Not Available Not Available No t Available azithromyci n 250 mg tablet TAKE 2 TABLETS BY MOUTH TODAY, THEN TAKE 1 TABLET DAILY FOR 4 DAYS 07/16 completed Not Available Not Available Not Available benzonatate 200 mg capsule 09/26 completed Not Available Not Available Not Available prednisone 20 mg tablet active Not Available Not Available Not Available Synthroid 100 mcg tablet TAKE 1 TABLET BY MOUTH EVERY DAY ON EMPTY STOMACH IN THE MORNING 07/16 completed Not Available Not Available Not Available fluorouraci l 5 % topical cream active Not Available Not Available Not Available moxifloxaci n 400 mg tablet active Not Available Not Available Not Available triamcinolo ne acetonide 0.025 % lotion active Not Available Not Available Not Available Toprol XL 50 mg tablet,exte nded release 07/17 completed Not Available Not Available Not Available metronidazo le 500 mg tablet active Not Available Not Available Not Available sulfamethox azole 800 mg-trimetho prim 160 mg tablet active Not Available Not Available Not Available doxycycline monohydrate 100 mg tablet 09/26 completed Not Available Not Available Not Available ciclopirox 8 % topical solution 09/26 completed Not Available Not Available Not Available meloxicam 7.5 mg tablet 09/26 completed Not Available Not Available Not Available erythromyci n 250 mg tablet 09/26 completed Not Available Not Available Not Available terbinafine HCl 250 mg tablet 10/03 completed Not Available Not Available Not Available benzonatate 100 mg capsule TAKE 1 CAPSULE BY MOUTH 3 TIMES A DAY 07/16 completed Not Available Not Available Not Available simvastatin 20 mg tablet TAKE 1 TABLET DAILY active Not Available Not Available No t Available oseltamivir 75 mg capsule TAKE 1 CAPSULE BY MOUTH DAILY FOR 7 DAYS active Not Available Not Available No t Available Synthroid 88 mcg tablet TAKE 1 TABLET DAILY active Not Available Not Available No t Available Tobrex 0.3 % eye ointment 10/03 completed Not Available Not Available Not Available nystatin-tr iamcinolone 100,000 unit/g-0.1 % topical cream apply topically as a thin film twice a day as needed 10/03 completed Not Available Not Available Not Available omeprazole 20 mg capsule,del ayed release active Not Available Not Available Not Available hydrocortis one 2.5 % topical cream 09/26 completed Not Available Not Available Not Available montelukast 10 mg tablet TAKE 1 TABLET BY MOUTH EVERY DAY active Not Available Not Available No t Available metoprolol succinate ER 25 mg tablet,exte nded release 24 hr 07/16 completed Not Available Not Available Not Available methylpredn isolone 4 mg tablets in a dose pack active Not Available Not Available Not Available itraconazol e 100 mg capsule 10/03 completed Not Available Not Available Not Available valsartan 160 mg-hydrochl orothiazide 25 mg tablet 07/15 completed Not Available Not Available Not Available Restasis 0.05 % eye drops in a dropperette active Not Available Not Available Not Available ProAir HFA 90 mcg/actuati on aerosol inhaler 09/26 completed Not Available Not Available Not Available hydrochloro thiazide 12.5 mg tablet TAKE 1 TABLET DAILY active Not Available Not Available No t Available peg 3350-electr olytes 236 gram-22.74 gram-6.74 gram-5.86 gram solution 07/03 completed Not Available Not Available Not Available sulfacetami de sodium-sulf ur 10 %-5 % (w/w) lotion 10/03 completed Not Available Not Available Not Available AzaSite 1 % eye drops 09/26 completed Not Available Not Available Not Available Voltaren 1 % topical gel active Not Available Not Available Not Available Shingrix (PF) 50 mcg/0.5 mL intramuscul ar suspension, kit active Not Available Not Available Not Available Shingrix (PF) 2017 active Not Available Not Available Not Avai lable Paxlovid 300 mg (150 mg x 2)-100 mg tablets in a dose pack TAKE TWO 150 MG TABLETS OF NIRMATREL VIR WITH ONE 100 MG TABLET OF RITONAVIR TWICE DAILY FOR 5 DAYS 07/15 completed Not Available Not Available Not Available Vitals Date Recorded Body height Body mass index (BMI) Body weight Body temperature Heart rate Systolic And Diastolic Provider Name and Address Organization Details Last Updated DateTime 1 157.48 cm 29 kg/m2 72890.0 3 g 97.3 [degF] 65 /min 138/61 mm[Hg] Shauna Simeon in [facility], 1 08:05:02 Date Recorded Body weight Body mass index (BMI) Body height Provider Name and Address Organization Details Last Updated DateTime 07/15/2022 89662.49 g 26.7 kg/m2 157.48 cm Shauna Simeon in [facility], 07/15/2022 08:38:48 Date Recorded Body weight Body mass index (BMI) Body height Body temperature Heart rate Systolic And Diastolic Provider Name and Address Organization Details Last Updated DateTime 4 38746.7 g 27.3 kg/m2 157.48 cm 96.8 [degF] 74 /min 144/71 mm[Hg] osito Simeon in [facility], 4 08:36:44 Date Recorded Body height Body mass index (BMI) Body weight Heart rate Systolic And Diastolic Provider Name and Address Organization Details Last Updated DateTime 07/17/2024 156.21 cm 28.1 kg/m2 92333.17 g 81 /min 147/68 mm[Hg] Elizabeth Simeon in [facility], 07/17/2024 08:45:18 Date Recorded Body height Body mass index (BMI) Body weight Heart rate Systolic And Diastolic Provider Name and Address Organization Details Last Updated DateTime 10/03/2017 157.48 cm 28.5 kg/m2 07079.41 g 69 /min 127/74 mm[Hg] Elizabeth Simeon in [facility], 10/03/2017 07:59:14 Social History Question Answer Notes LastModified by Organizat ion Details LastModified Time Tobacco Smoking Status Former Smoker Not Available [facility] 03/17/2020 03:19:40 What Is Your Level Of Caffeine Consumption? Occasional Information not available 07/15/2022 In The 14 Days Before Symptom Onset, Have You Had Close Contact With A Laboratory-confir med COVID-19 While That Case Was Ill? No Information not available 07/15/2022 In The 14 Days Before Symptom Onset, Have You Had Close Contact With A Person Who Is Under Investigation For COVID-19 While That Person Was Ill? No Information not available 07/15/2022 Have You Been To An Area Known To Be High Risk For COVID-19? No Information not available 07/15/2022 Diabetes No [email or web address] Information no t available 10/28/2011 What Type Of Diet Are You Following? REGULAR [id number] Information not available 03/17/2020 Which Illicit Or Recreational Drugs Have You Used? None [id number] Information not available 03/17/2020 Do You Reside In Or Have You Traveled To An Area Where Ebola Virus Transmission Is Active? No [id number] Information not available 03/17/2020 Education 2 Year College [employer] not available 10/28/2011 How Many Days In The Past Year Have You Had A Heavy Drinking Consumption (4+ Female, 5+ Male)? 0 Information no t available 09/26/2016 Are There Any Guns Present In Your Home? No Information not available 07/15/2022 High Number Of Sexual Partners No Information not available 09/26/2016 Live Alone Or With Others? With Others [employer] Information not available 10/28/2011 To Which Gender Do You Self-identify? Female Information not available 09/26/2016 Marital Status [email or web address] [employer] not available 10/28/2011 What Was The Date Of Your Most Recent Tobacco Screening? 07/17/2024 Information not available 07/17/2024 How Many Children Do You Have? 2 [id number] Information not available 03/17/2020 What Is Your Relationship Status? Information not available 07/15/2022 Seat Belts Used Routinely Yes [email or web address] FIMAki Information not available 10/28/2011 Are You Sexually Active? No Not Twan [email or web address] Information not available 07/17/2023 How Much Tobacco Do You Smoke? No [id number] Information not available 03/17/2020 General Stress Level Low Information not available 09/26/2016 How Many Years Have You Smoked Tobacco? 20 [id number] Information not available 03/17/2020 Have You Recently (within The Last 12 Weeks, Or During A Current ) Traveled To Or Lived In A Zika-affected Area? No Information not available 09/26/2016 Sex: Female Functional Status Question Answer Note LastModified by Organization D etails LastModified Time Do you or have you ever used any other forms of tobacco or nicotine? No Information not available 07/15/2022 What is your level of alcohol consumption? None [id number] Information not available 03/17/2020 Are you currently employed? No Information not available 07/15/2022 What is your occupation? retired Information not available 09/26/2016 What is your exercise level? Moderate [id number] Information not available 03/17/2020 Mental Status Question Answer Note LastModified by Organization D etails LastModified Time Do you feel stressed (tense, restless, nervous, or anxious, or unable to sleep at night)? [id number] Information not available 07/15/2022 Family History Relationship Description Onset Age of this Age Resolved Age Notes LastModified by Organization Details LastModified Time Mother Heart disease 54 age 54 sudden cardia c diseas e, was schedu led to have bypass surger y but never made it (previ ously record ed as Heart Proble m) Not available 09/09/2014 08:16:21 Father Kidney disease Not available 08/14 08:16:21 Brother Malignant tumor of pancreas Not available 08/14 08:16:21 Medical History Condition Response High Blood Pressure Y Autoimmune Condition N Depression N History of Ovarian Cancer N Anxiety Disorder N Arthritis N Infertility N Kidney or Bladder Problems N Osteopenia Y Asthma N Hepatitis N Anesthesia complications N Candidate for MyRisk panel N Lung Disease N Defects or Inherited Disease N BRCA testing in past N History of Cancer N Endometriosis N Thyroid Problems Y GI Problems N Anemia N History of Breast Cancer Y DAVID exposure N Psychiatric Illness N Diabetes N Headaches or Migraines N Heart Disease N Hypertension Y Osteoporosis N Gynecological History Statement/Question Response If Post Menopausal, Age at Menopause 56 Most Recent Mammogram 09/15/2023 Obstetrics History GPAL:G 2 P 2 0 0 2 Type Value Full Term 2 Living 2 Total 2 Immunizations Vaccine Type Date Status Note Provider Nam e and Address Organization Details Recorded Time tetanus toxoid, adsorbed 2 completed Madelaine Mayorga MD [address] [facility],[address], [place], [address], SONIDO Simeon in [facility], 10/28/2011 08:32:58 tetanus toxoid, adsorbed 4 completed SONIDO Penny in [facility], 09/09/2014 08:09:57 varicella 8 completed SONIDO Penny in [facility], 10/03/2017 08:03:12 Influenza, split virus, quadrivalent, preservative 0 completed SONIDO Lebron in [facility], 07/03/2020 08:04:52 COVID-19, mRNA, LNP-S, PF, 30 mcg/0.3 mL dose 1 completed SONIDO Lebron in [facility], 07/03/2020 08:05:48 COVID-19, mRNA, LNP-S, PF, 30 mcg/0.3 mL dose 1 completed SONIDO Lebron in [facility], 07/03/2020 08:06:06 Past Encounters Encounter ID Performer Location Encounter Start Date Encounter Closed Date Diagnosis/Indication Diagnosis SNOMED-CT Code Diagnosis ICD10 Code Diagnosis Note [id number] MD MADELAINE Denson MD [address] [facility] [place] [address] 10/28/2011 08:03:13 10/28/2011 09:38:11 [id number] MD MADELAINE Denson MD [address] [facility] [place] [address] 09/09/2014 07:55:29 09/09/2014 09:06:42 Specialized medical examination 81348664 Screening mammography [id number] MD MADELAINE Denson MD [address] [place] [address],[facility] [place] [address] 09/26/2016 07:53:57 09/26/2016 11:20:06 Specialized medical examination 18514720 Z01.419 Screening mammography 24 510232 Z12.31 Lichen scl erosus et atrophicus 28699233 L90.0 [id number] MD MADELAINE Denson MD [address] [place], [place] [address] [address] [place] [id number] 10/03/2017 07:52:52 10/03/2017 11:39:14 Specialized medical examination 39632819 Z01.419 Screening mammography 24 466378 Z12.31 Lichen scl erosus et atrophicus 29520145 L90.0 [id number] MD MADELAINE Denson MD [address] [place] [address] 07/03/2020 08:01:37 07/03/2020 09:40:53 Screening for malignant neoplasm of cervix 143291355 Z12.4 Screening mammography 24 722071 Z12.31 Screening for osteoporosis 812800357 Z13.820 [id number] MD MADELAINE Denson MD [address] [place] [id number] 07/15/2022 08:28:33 07/15/2022 13:35:55 History of clinical finding in subject 305329228 Z91.89 Screening mammography 24 293441 Z12.31 Advance care planning 71 8101184 Z71.89 Screening for osteoporosis 703953920 N95.8 Personal h istory of primary malignant neoplasm of breast 838487629 Z85.3 [id number] MD MADELAINE Denson MD [address] [place], [place] [address] [facility] [place] [address] 07/17/2023 08:32:47 07/17/2023 14:26:39 Screening for malignant neoplasm of cervix 061678875 Z12.4 Screening mammography 24 406347 Z12.31 Screening for osteoporosis 318709116 N95.8 [id number] MD MADELAINE Denson MD [address] [facility] 214 [place] [address] 07/17/2024 08:32:04 07/17/2024 11:53:18 History of clinical finding in subject 610135263 Z91.89 Screening mammography 24 357070 Z12.31 Advance care planning 71 4424576 Z71.89 Screening for osteoporosis 462025413 N95.8 Health Concerns Section Related Observation LastModified by Organization Detai ls LastModified Time None Recorded Concern Status LastModified by Organization Details LastModified Time None Recorded Advance Directives Directive None Recorded Payers Insurance Date Sequence Insurance Name Policy Number Policy Hannon Covered Member ID Hannon Member ID Guarantor Name 07/17/2024 1 [employer] [id number] Teresita Malcolm [id number] Teresita Malcolm 07/03/2020 1 [place] [id number] Chester Fowler [id number] Teresita Malcolm 09/09/2014 1 [place] [id number] Chester Fowler [id number] Teresita Malcolm 07/17/2024 1 [employer] (MEDICARE REPLACEMENT/ ADVANTAGE - PPO) [id number] Teresita Malcolm [id number] Teresita Malcolm OBGyn Episode No OBEpisode recorded.
[2024-12-10 08:12] VITALS: BP 134/82; PULSE 77; RESP 18; TEMP 36.9; O2SAT 96; BMI 27.6
--- NOTE | 2024-12-10 08:12 | MHC.PC.OV ---
Vital Signs 12/10/24 08:12 Height 5 ft 2 in Weight 151 lb BMI 27.6 BP 134/82 Blood Pressure Location Lt brachial Position Sitting Respiration 18 Pulse 77 Pulse Source Pulse Oximeter Temp 98.4 F Temp Source Oral Pulse Oximetry (%) 96 Oxygen Delivery Method Room Air Intake Visit Reasons: Physical Exam Allergies amlodipine (Lotrel) Allergy (Unknown, Verified 12/10/24 08:17) doesn't remember atorvastatin (Lipitor) Allergy (Unknown, Verified 12/10/24 08:17) does not remember benazepril (Lotrel) Allergy (Unknown, Verified 12/10/24 08:17) does not remember clindamycin Allergy (Unknown, Verified 12/10/24 08:17) doesnot remember ezetimibe (Zetia) Allergy (Unknown, Verified 12/10/24 08:17) does not remember ibandronate sodium (Boniva) Allergy (Unknown, Verified 12/10/24 08:17) pain in bones niacin (Niaspan Extended-Release) Allergy (Unknown, Verified 12/10/24 08:17) does not remember penicillin V Allergy (Unknown, Verified 12/10/24 08:17) sores in her mouth wheat Allergy (Unknown, Verified 12/10/24 08:17) Unknown metoprolol Adverse Reaction (Intermediate, Verified 12/10/24 08:17) Wavy vision lisinopril Adverse Reaction (Unknown, Verified 12/10/24 08:17) Cough Medication List - Last Reconciled 12/10/24 by Nicole Barroso MD calcium carbonate (Calcium 600) 600 mg PO DAILY glucosamine HCl 1,500 mg PO DAILY hydrochlorothiazide 12.5 mg PO DAILY irbesartan-hydrochlorothiazide 150-12.5 mg 1 tab PO DAILY levothyroxine 88 mcg PO DAILY montelukast 10 mg PO DAILY omeprazole magnesium (Prilosec OTC) 20 mg PO DAILY simvastatin 20 mg PO DAILY turmeric mg PO zinc sulfate PO Tobacco use date assessed: 12/10/24 Fall risk assessment: No Falls in past year Last assessed Fall Risk: 12/10/24 Dental Screening Dental Screen Date: 12/10/24 Did you have a dental visit in the last 12 months?: Yes Did you have a dental problem in the last 6 months where you did not have access to dental care?: No Was dental information given to patient?: Patient has dentist HPI Physical Exam HPI Details Patient presents for physical. She complains of chronic persistent postnasal drip and intermittent cough with clear sputum for a few years. Patient tried montelukast with temporary relief. she does not want to take medication regularly. She denies seasonal allergy symptoms wheezing pleurisy fever chills night sweats PND or orthopnea. [facility] Medical History (Updated 12/10/24 @ 09:17 by Nicole Barroso MD) Annual physical exam Cataract Bilateral ankle pain Ankle pain, right Breast cancer Cough Mammogram normal Normal Pap smear Hypothyroidism Hyperlipidemia Hip pain Dysphagia Osteoporosis HTN (hypertension) Surgical History H/O colonoscopy No pertinent past surgical history Family History Father No problems noted. Mother No problems noted. Social History Housing: House Alcohol intake: current Alcohol intake frequency: holidays/special occasions only Patient Tobacco Use Status: Former Tobacco user e-Cigarette/Vaping Use: Never Used service: No Current occupational status: retired Cognitive needs: No Hearing needs: No Vision needs: Yes Questionnaire PHQ-9 Over the last 2 weeks, how often have you been bothered by any of the following problems? 1. Little interest or pleasure in doing things: not at all 2. Feeling down, depressed, or hopeless: not at all 3. Trouble falling or staying asleep, or sleeping too much: not at all 4. Feeling tired or having little energy: not at all 5. Poor appetite or overeating: not at all 6. Feeling bad about yourself - or that you are a failure or have let yourself or your family down: not at all 7. Trouble concentrating on things, such as reading the newspaper or watching television: not at all 8. Moving or speaking so slowly that other people could have noticed. Or the opposite - being so fidgety or restless that you have been moving around a lot more than usual: not at all 9. Thoughts that you would be better off or of hurting yourself in some way: not at all Total score: 0 Depression Screening Interpretation: Negative Depression Screening Done: Yes 57967 - PHQ-9 Billing: Yes Source: Developed by Drs. Trevor Mackay, Esperanza Frey, Brenton Rosales and colleagues, with an educational crys from [employer]. Thrive Questionnaire Date Thrive assessed: 12/10/24 I am a: Patient What is your living situation today?: I have a steady place to live Within the past 12 months, did the food you bought not last and you didn't have the money to get more?: Never true Within the past 12 months, did you worry whether your food would run out before you got money to buy more?: Never true Do you have trouble paying for medicines?: No Do you have trouble getting transportation to medical appointments?: No Do you have trouble paying your heating and electricity bill?: No Do you have trouble taking care of your child, family member or friend?: No Do you have trouble with day-to-day activities such as bathing, preparing meals, shopping, managing finances, etc.?: No Are you currently unemployed and looking for a job?: No Are you interested in more education?: No Please select the resources that you would like help with: None Currently or been in a relationship where the following occur: No concerns reported THRIVE Score: 0 AUDIT C Alcohol Use Questionnaire (AUDIT-C) 1. How often do you have a drink containing alcohol?: Monthly or less 2. How many drinks containing alcohol do you have on a typical day when you are drinking?: 1 or 2 3. How often do you have six or more drinks on one occasion?: Never Total Score: 1 SANTOSH-7 AMB Questionnaire SANTOSH-7 Date SANTOSH - 7 assessed: 12/10/24 Feeling nervous, anxious, or on edge: 0 = Not at all Not being able to stop or control worryin = Not at all Worrying too much about different things: 0 = Not at all Trouble relaxin = Not at all Being so restless that it is hard to sit still: 0 = Not at all Becoming easily annoyed or irritable: 0 = Not at all Feeling afraid as if something awful might happen: 0 = Not at all Total SANTOSH-7 score (0-4 normal; 5-9 mild; 10-14 moderate; 15-21 severe): 0 Source: Developed by Drs. Trevor Mackay, Esperanza Frey, Brenton Rosales and colleagues, with an educational crys from [employer]. SANTOSH-7 Assessment Billing SANTOSH-7 Assessment Tool: SANTOSH-7 Assessment 52914 Review of Systems Const All systems reviewed & are unremarkable except as noted in HPI and below Eyes Reports no additional complaints ENT Reports no additional complaints Card Reports no additional complaints Resp Reports no additional complaints GI Reports no additional complaints Reports no additional complaints Physical exam (Primary Care) Vital Signs: Last Vital Signs Temp 98.4 F 12/10/24 08:12 Pulse 77 12/10/24 08:12 Resp 18 12/10/24 08:12 BP 134/82 12/10/24 08:12 Pulse Ox 96 12/10/24 08:12 Oxygen Delivery Method Room Air 12/10/24 08:12 BMI result Body Mass Index 27.6 Tobacco/Smoking Status: Tobacco use Status Tobacco use date assessed 12/10/24 12/10/24 08:17 Patient Tobacco Use Status Former Tobacco user 12/10/24 08:17 e-Cigarette/Vaping Use Never Used 12/10/24 08:17 PHQ-9: PHQ-9 Score PHQ-9: Total score 0 12/10/24 08:37 Depression Screening Interpretation: Negative Thrive Assessment: Date of Thrive Assessment Date Thrive assessed 12/10/24 12/10/24 08:17 Currently or been in a relationship where the following occur: No concerns reported Const General: no acute distress HENMT Head: Yes normal to inspection Ears: TM's normal bilaterally General nose exam: Normal nasal mucous membranes and turbinates present Face and sinus: Yes normal facial exam Throat: Yes posterior oropharynx abnormal (Erythema) and Yes postnasal drainage Eyes General: appearance normal, both eyes and all related structures Neck Neck: Yes no lymphadenopathy and Yes supple Resp Effort & Inspection: normal respiratory effort Auscultation: clear to auscultation bilaterally Cardio Rhythm: regular rhythm Heart sounds: S1 normal heart sound present and S2 normal heart sound present GI Inspection: Yes normal to inspection Palpation (GI): Soft to palpation Percussion: Yes normal to percussion Auscultation: normal bowel sounds Immunizations pneumoc 20-amanda conj-dip cr(PF) 0.5 mL IM syringe Performing Provider: Nicole Barroso MD Performing Location: [facility] Administered by: YRIS Jordan on 12/10/24 09:12 Dose Route Admin Location Dispensed Lot Number Expiration Date NDC Desk Editor 0.5 mL IM Left Deltoid 0.5 mL [id number] 12/12/25 WYETH/PFIZER Total Dispensed Waste 0.5 mL 0 % VIS Given Date VIS Provided VIS Publication Date 12/10/24 Single Vaccine 24 Eligibility Eligibility Date Funding Source Not [facility] Eligible 12/10/24 Private Coding Level of Care Code Est Pt Prev Care >65y(97506) Diagnoses Cough R05 HTN (hypertension) I10 Hyperlipidemia E78.5 Hypothyroidism E03.9 Dysphagia R13.10 Breast cancer C50.919 Annual physical exam Z00.00 Additional Codes SANTOSH-7 Assessment Billing - SANTOSH-7 Assessment Tool: SANTOSH-7 Assessment 30431 ([id number]) PHQ-9 - 63930 - PHQ-9 Billing: Yes ([id number]) Assessment & Plan Assessment & Plan (1) Cough: Code(s): R05 - Cough Category: Medical Plan: For chronic cough obtain chest x-ray and PFTs. Patient was advised to restart montelukast for 2 months. (2) HTN (hypertension): Code(s): I10 - Essential (primary) hypertension Category: Medical Plan: Continue current medications (3) Hyperlipidemia: Code(s): E78.5 - Hyperlipidemia, unspecified Category: Medical Plan: Continue statin (4) Hypothyroidism: Code(s): E03.9 - Hypothyroidism, unspecified Category: Medical Plan: Continue levothyroxine (5) Dysphagia: Comment: EGD esophageal dysmotility, short segment of Greer's , no dysplasia, 07/2020 Dr. Soares repeat 5 yrs Code(s): R13.10 - Dysphagia, unspecified Category: Medical Plan: Patient was advised to restart Pepcid, anti GERD diet and lifestyle modifications discussed with the patient (6) Breast cancer: Comment: R lumpectomy 08/2020, RTx 09/2020, f/u [facility] Code(s): C50.919 - Malignant neoplasm of unspecified site of unspecified female breast Category: Medical Plan: Follow-up with oncology (7) Annual physical exam: Code(s): Z00.00 - Encounter for general adult medical examination without abnormal findings Category: Medical Plan: Well-balanced diet regular exercise discussed with the patient she is up-to-date with the mammogram colonoscopy Orders: Orders PFT pulmonary function test Today R05 - Cough XR chest 2V Today R05 - Cough Pneumococcal 20 Immunization Today Z23 - Encounter for immunization Medications: Refilled montelukast 10 mg PO DAILY 90 tabs 2RF
== END 2024-12-10 08:55 | disposition home or self-care (01) ==
LOC: HO.HMCC 08:00
PROVIDERS: PCP Internal Medicine; Visit Provider Internal Medicine
DX: Z00.00 Encounter for general adult medical examination without abnormal findings (principal); R05.9 Cough, unspecified; C50.919 Malignant neoplasm of unspecified site of unspecified female breast; I10 Essential (primary) hypertension; E78.5 Hyperlipidemia, unspecified; E03.9 Hypothyroidism, unspecified; R13.10 Dysphagia, unspecified; Z23 Encounter for immunization

== ENCOUNTER → 2024-12-10 09:03 | Outpatient (BNV) | payer MEDICARE, SELFPAY | PROVIDERS: PCP Internal Medicine; Visit Provider Radiology Diagnostic Radiology | DX: R05.9 Cough, unspecified (principal) | CPT/HCPCS: 71046 ==

== ENCOUNTER 2025-02-21 09:28 | Outpatient (REF) | payer MEDICARE, SELFPAY ==
[2025-02-21 13:56] LABS: Alanine Aminotransferase 38 U/L (0-31); Albumin Level 4.5 g/dL (3.5-5.0); Alkaline Phosphatase 75 U/L (39-117); Anion Gap 9 (12-20); Aspartate Amino Transferase 33 U/L (5-31); Blood Urea Nitrogen 12 mg/dL (9-16); Calcium 9.9 mg/dL (8.4-10.2); Carbon Dioxide 31 mmol/L (22-29); Chloride 104 mmol/L (96-108); Estimated Glomerular Filt Rate > 60; Potassium 4.0 mmol/L (3.3-5.1); Sodium 140 mmol/L (135-145); Total Protein 6.9 g/dL (6.5-8.0)
== END 2025-02-21 09:29 | disposition home or self-care (01) ==
LOC: HO.HMGCLDS 09:28
PROVIDERS: PCP Internal Medicine; Visit Provider Internal Medicine
DX: I10 Essential (primary) hypertension (principal); E78.5 Hyperlipidemia, unspecified; E03.9 Hypothyroidism, unspecified; R09.82 Postnasal drip
CPT/HCPCS: 36415; 80053; 96127; 99212

== ENCOUNTER 2025-02-21 09:28 | Outpatient (AMB) | payer MEDICARE, SELFPAY ==
[2025-02-21 09:37] VITALS: BP 132/80; PULSE 73; RESP 17; TEMP 36.8; O2SAT 98; BMI 27.6
--- NOTE | 2025-02-21 09:37 | A.OFFPC_ITS ---
Vital Signs 02/21/25 09:37 Height 5 ft 2 in Weight 151 lb BMI 27.6 BP 132/80 Blood Pressure Location Lt brachial Position Sitting Respiration 17 Pulse 73 Pulse Source Pulse Oximeter Temp 98.3 F Temp Source Oral Pulse Oximetry (%) 98 Oxygen Delivery Method Room Air Intake Visit Reasons: 2m follow up Intake Note: Pt is here today for 2 months follow up visit. Allergies amlodipine (Lotrel) Allergy (Unknown, Verified 02/21/25 09:39) doesn't remember atorvastatin (Lipitor) Allergy (Unknown, Verified 02/21/25 09:39) does not remember benazepril (Lotrel) Allergy (Unknown, Verified 02/21/25 09:39) does not remember clindamycin Allergy (Unknown, Verified 02/21/25 09:39) doesnot remember ezetimibe (Zetia) Allergy (Unknown, Verified 02/21/25 09:39) does not remember ibandronate sodium (Boniva) Allergy (Unknown, Verified 02/21/25 09:39) pain in bones niacin (Niaspan Extended-Release) Allergy (Unknown, Verified 02/21/25 09:39) does not remember penicillin V Allergy (Unknown, Verified 02/21/25 09:39) sores in her mouth wheat Allergy (Unknown, Verified 02/21/25 09:39) Unknown metoprolol Adverse Reaction (Intermediate, Verified 02/21/25 09:39) Wavy vision lisinopril Adverse Reaction (Unknown, Verified 02/21/25 09:39) Cough Medication List - Last Reconciled 02/21/25 by Nicole Barroso MD calcium carbonate (Calcium 600) 600 mg PO DAILY glucosamine HCl 1,500 mg PO DAILY hydrochlorothiazide 12.5 mg PO DAILY irbesartan-hydrochlorothiazide 150-12.5 mg 1 tab PO DAILY levothyroxine 88 mcg PO DAILY montelukast 10 mg PO DAILY omeprazole magnesium (Prilosec OTC) 20 mg PO DAILY simvastatin 20 mg PO DAILY turmeric mg PO zinc sulfate PO Tobacco use date assessed: 12/10/24 Fall risk assessment: No Falls in past year Last assessed Fall Risk: 02/21/25 Dental Screening Dental Screen Date: 12/10/24 HPI 2m follow up HPI Details Pt presents for f/u hypertension hypothyroidism hyperlipidemia. Patient reports chronic postnasal drip and intermittent cough improved on Zyrtec and montelukast. She denies shortness or breath chest pain sputum production. Patient reports of episodes of feeling dizzy equilibrium on and off when getting up from bed. She denies any change in balance, weakness numbness in extremities. Patient exercises 4 times a week doing Arielle other cardio exercises without difficulty with her balance, dyspnea on exertion or chest pain palpitations. FOR[facility]LY [facility] Medical History (Updated 02/21/25 @ 11:15 by Nicole Barroso MD) Annual physical exam Cataract Bilateral ankle pain Ankle pain, right Breast cancer Cough Mammogram normal Normal Pap smear Hypothyroidism Hyperlipidemia Hip pain Dysphagia Osteoporosis HTN (hypertension) Surgical History H/O colonoscopy No pertinent past surgical history Family History Father No problems noted. Mother No problems noted. Social History Housing: House Alcohol intake: current Alcohol intake frequency: holidays/special occasions only Patient Tobacco Use Status: Former Tobacco user e-Cigarette/Vaping Use: Never Used service: No Current occupational status: retired Cognitive needs: No Hearing needs: No Vision needs: Yes Questionnaire PHQ-9 Over the last 2 weeks, how often have you been bothered by any of the following problems? 1. Little interest or pleasure in doing things: not at all 2. Feeling down, depressed, or hopeless: not at all 3. Trouble falling or staying asleep, or sleeping too much: not at all 4. Feeling tired or having little energy: not at all 5. Poor appetite or overeating: not at all 6. Feeling bad about yourself - or that you are a failure or have let yourself or your family down: not at all 7. Trouble concentrating on things, such as reading the newspaper or watching television: not at all 8. Moving or speaking so slowly that other people could have noticed. Or the opposite - being so fidgety or restless that you have been moving around a lot more than usual: not at all 9. Thoughts that you would be better off or of hurting yourself in some way: not at all Total score: 0 Depression Screening Interpretation: Negative Depression Screening Done: Yes Source: Developed by Drs. Trevor Mackay, Esperanza Frey, Brenton Rosales and colleagues, with an educational crys from [employer]. Thrive Questionnaire Date Thrive assessed: 12/10/24 I am a: Patient What is your living situation today?: I have a steady place to live Within the past 12 months, did the food you bought not last and you didn't have the money to get more?: Never true Within the past 12 months, did you worry whether your food would run out before you got money to buy more?: Never true Do you have trouble paying for medicines?: No Do you have trouble getting transportation to medical appointments?: No Do you have trouble paying your heating and electricity bill?: No Do you have trouble taking care of your child, family member or friend?: No Do you have trouble with day-to-day activities such as bathing, preparing meals, shopping, managing finances, etc.?: No Are you currently unemployed and looking for a job?: No Are you interested in more education?: No Please select the resources that you would like help with: None Currently or been in a relationship where the following occur: No concerns repor anjel THRIVE Score: 0 SANTOSH-7 AMB Questionnaire SANTOSH-7 Date SANTOSH - 7 assessed: 12/10/24 Feeling nervous, anxious, or on edge: 0 = Not at all Not being able to stop or control worryin = Not at all Worrying too much about different things: 0 = Not at all Trouble relaxin = Not at all Being so restless that it is hard to sit still: 0 = Not at all Becoming easily annoyed or irritable: 0 = Not at all Feeling afraid as if something awful might happen: 0 = Not at all Total SANTOSH-7 score (0-4 normal; 5-9 mild; 10-14 moderate; 15-21 severe): 0 Source: Developed by Drs. Trevor Mackay, Brenton Le and colleagues, with an educational crys from [employer]. Review of Systems Const All systems reviewed & are unremarkable except as noted in HPI and below Eyes Reports no additional complaints ENT Reports no additional complaints Resp Reports no additional complaints GI Reports no additional complaints Reports no additional complaints Physical exam (Primary Care) Vital Signs: Last Vital Signs Temp 98.3 F 02/21/25 09:37 Pulse 73 02/21/25 09:37 Resp 17 02/21/25 09:37 BP 132/80 02/21/25 09:37 Pulse Ox 98 02/21/25 09:37 Oxygen Delivery Method Room Air 02/21/25 09:37 BMI result Body Mass Index 27.6 Tobacco/Smoking Status: Tobacco use Status Tobacco use date assessed 12/10/24 02/21/25 09:41 Patient Tobacco Use Status Former Tobacco user 02/21/25 09:41 e-Cigarette/Vaping Use Never Used 02/21/25 09:41 PHQ-9: PHQ-9 Score PHQ-9: Total score 0 02/21/25 09:41 Depression Screening Interpretation: Negative Thrive Assessment: Date of Thrive Assessment Date Thrive assessed 12/10/24 02/21/25 09:41 Currently or been in a relationship where the following occur: No concerns reported Const General: no acute distress HENMT Head: Yes normal to inspection Ears: TM's normal bilaterally Face and sinus: Yes normal facial exam Throat: Yes posterior oropharynx normal Neck Neck: Yes supple Resp Effort & Inspection: normal respiratory effort Auscultation: clear to auscultation bilaterally Cardio Rhythm: regular rhythm Heart sounds: S1 normal heart sound present and S2 normal heart sound present GI Inspection: Yes normal to inspection Palpation (GI): Soft to palpation Neuro Cranial nerves: Yes CN's II-XII intact bilaterally Gait exam (Neuro): Normal gait present Motor exam (neuro): 5/5 motor strength present throughout Romberg Test: Negative Coding Level of Care Code Est Pt Level 4 (01137) Diagnoses HTN (hypertension) I10 Hyperlipidemia E78.5 Postnasal drip R09.82 Assessment & Plan Assessment & Plan (1) HTN (hypertension): Code(s): I10 - Essential (primary) hypertension Category: Medical Plan: Continue current medications, check comprehensive panel today (2) Hyperlipidemia: Code(s): E78.5 - Hyperlipidemia, unspecified Category: Medical Plan: Continue statin (3) Postnasal drip: Comment: Flonase not effective Code(s): R09.82 - Postnasal drip Category: Medical Plan: Continue antihistamine and montelukast. Orders: Orders Comprehensive Met. Panel Today E78.5 - Hyperlipidemia, unspecified, I10 - Essential (primary) hypertension Comprehensive [place]. Panel Fast 10 Months E03.9 - Hypothyroidism, unspecified, E55.9 - Vitamin D deficiency, unspecified, E78.5 - Hyperlipidemia, unspecified, I10 - Essential (primary) hypertension TSH reflex Free T4 10 Months E03.9 - Hypothyroidism, unspecified, E55.9 - Vitamin D deficiency, unspecified, E78.5 - Hyperlipidemia, unspecified, I10 - Essential (primary) hypertension UA w Microscopic 10 Months E03.9 - Hypothyroidism, unspecified, E55.9 - Vitamin D deficiency, unspecified, E78.5 - Hyperlipidemia, unspecified, I10 - Essential (primary) hypertension Lipid Panel 10 Months E03.9 - Hypothyroidism, unspecified, E55.9 - Vitamin D deficiency, unspecified, E78.5 - Hyperlipidemia, unspecified, I10 - Essential (primary) hypertension Complete Blood Count Auto Diff 10 Months E03.9 - Hypothyroidism, unspecified, E55.9 - Vitamin D deficiency, unspecified, E78.5 - Hyperlipidemia, unspecified, I10 - Essential (primary) hypertension Vitamin D 25-OH Total 10 Months E03.9 - Hypothyroidism, unspecified, E55.9 - Vitamin D deficiency, unspecified, E78.5 - Hyperlipidemia, unspecified, I10 - Essential (primary) hypertension Medications: Refilled montelukast 10 mg PO DAILY 90 tabs 3RF
== END 2025-02-21 11:10 | disposition home or self-care (01) ==
LOC: HO.HMCC 09:29
PROVIDERS: PCP Internal Medicine; Visit Provider Internal Medicine
DX: I10 Essential (primary) hypertension (principal); E78.5 Hyperlipidemia, unspecified; R09.82 Postnasal drip